=== PATIENT | male | born 1930 | race Caucasian/White ===

== ENCOUNTER 2018-07-16 13:57 | Inpatient (IN) ==
--- NOTE | 2018-07-16 14:53 | XRay Report ---
HISTORY: Fell with left hip pain FINDINGS: No fracture or dislocation are present. 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 Joint spaces in both hips are normal in width and symmetric and there is no significant arthritis in the hips. IMPRESSION: No fracture Interpreted and Authenticated by: Joseph Enrique 07/16/18
[2018-07-16] MEDS ORDERED: KETOROLAC 30 MG/ML VIAL IV ONE (15:34)
--- NOTE | 2018-07-16 16:35 | Emergency Department Note ---
Fall HPI - General Chief Complaint: Fall Stated Complaint: Fall. Left hip pain Time Seen by Provider: 07/16/18 14:17 Source: patient, EMS Mode of arrival: EMS Limitations: no limitations - History of Present Illness HPI Narrative: 88-year-old male who fell down a flight of 2 stairs hitting his head his left hip and his left knee about an hour prior to arrival. He is not on a blood thinner nor did he lose consciousness. His left hip actually hurts the worse and so he was given fentanyl en route by EMS - Related Data Home Medications Medication Instructions Recorded Confirmed Levothyroxine [Synthroid] 25 mcg PO DAILY 03/08/15 07/16/18 biotin 2,500 mcg capsule 5,000 mg PO TID cap 04/06/16 07/16/18 levetiracetam 500 mg tablet 500 mg PO Q12H 06/24/17 07/16/18 Bismuth Subsalicylate 262 mg PO TID 01/03/18 07/16/18 [Pepto-Bismol] Calcium Carbonate [Calcium] 500 mg PO DAILY 01/03/18 07/16/18 Colestipol HCl [Colestid] 1 gm PO BID 01/03/18 07/16/18 Telmisartan [Micardis] 40 mg PO QAM 01/03/18 07/16/18 Venlafaxine [Effexor Xr] 37.5 mg PO DAILY 01/03/18 07/16/18 L. Acidophilus/L. Rhamnosus 1 each PO DAILY 07/16/18 07/16/18 [Probiotic 15 Billion Cell Cap] sulfaSALAzine [Azulfidine] 1,000 mg PO BID 07/16/18 07/16/18 Previous Rx's Medication Instructions Recorded Pantoprazole [Protonix] 40 mg PO QAMAC #30 tab 07/17/18 Allergies Allergy/AdvReac Type Severity Reaction Status Date / Time No Known Drug Allergies Allergy Verified 07/16/18 14:09 Review of Systems All systems ED: reviewed and negative except as stated. Fall PMH - Past Medical History Attestation: Yes: The following information was validated with the patient. PMF Narrative: Family History (Last Reviewed 06/27/18 @ 08:16 by Linda Arnold CMA) Mother Ovarian cancer Brother CVA (cerebral vascular accident) Sister CVA (cerebral vascular accident) Medical History (Last Reviewed 06/27/18 @ 08:16 by Linda Arnold [facility]) Urinary frequency (Chronic) Balance problems (Chronic) Dry cough (Chronic) Bronchitis (Chronic) Lymphadenopathy (Chronic) Thrombocytopenia (Chronic) Lymphocytosis (Chronic) Lung nodule seen on imaging study (Chronic) Aspiration into airway (Chronic) MORGAN on CPAP (Chronic) Bronchiectasis (Chronic) Hypogammaglobulinemia (Chronic) Hyperuricemia (Chronic) 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) Septic shock (Chronic) Thyroid disease (Chronic) Lower extremity injury (Chronic) History of BPH (Chronic) Seizure disorder (Chronic) Swelling of right knee joint (Chronic) Right knee pain (Chronic) 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, right knee (Chronic) Severe sepsis with septic shock (Chronic) Weakness (Chronic) Acute kidney failure (Chronic) Gout, unspecified (Chronic) Constipation, unspecified (Chronic) Pain, unspecified (Chronic) Epilepsy, unspecified, not intractable, with status epilepticus (Chronic) Hypothyroidism (Chronic) Abdominal pain (Chronic) Pneumonia involving left lung (Chronic) Community acquired pneumonia (Chronic) Pneumonia (Chronic) Chronic lymphocytic leukemia (Chronic) Community acquired bacterial pneumonia (Chronic) Septic arthritis (Chronic) Septic arthritis of knee, right (Chronic) EUGENIO (acute kidney injury) (Chronic) High anion gap metabolic acidosis (Chronic) Hypernatremia (Chronic) H/O Clostridium difficile infection (Resolved) Past Surgical History (Last Reviewed 06/27/18 @ 08:16 by Linda Arnold [facility]) History of arthroplasty of right knee (Chronic) History of bone marrow biopsy (Chronic) History of surgery (Chronic 03/12/16) Medical history: Reports: arthritis, thyroid disease, other (Leukemia) Psychiatric history: Reports: no psych history Family history: Reports: no significant family history - Social History smoking status: Former smoker Alcohol use: Reports: None Drug use: Reports: none Physical Exam No acute distress. Normocephalic atraumatic. I palpated his entire school I do not see any hematoma abrasion laceration or other concerning traumatic feature. Conjunctive are clear sclerae nonicteric. Pupils are equal reactive. No nasal discharge or congestion. Oropharynx pink and moist. Posterior pharynx clear. Neck is supple without lymphadenopathy thyromegaly or carotid bruit. Heart is regular rate and rhythm no murmur appreciated. Lungs are clear to auscultation bilaterally without wheezes rales rhonchi or respiratory distress. Abdomen soft nontender nondistended. Left hip area tender at the true hip joint and the groin. No greater trochanter pain. Any movement of the hip at all causes significant discomfort. He does have normal sensation bilateral feet. Alert oriented able to answer questions appropriately. Reasonable historian Limitations: physical limitation Course Vital Signs Temperature 98.2 F 07/16/18 13:57 Pulse Rate 78 07/16/18 13:57 Respiratory Rate 20 07/16/18 13:57 Blood Pressure 132/76 07/16/18 13:57 Pulse Oximetry (%) 97 07/16/18 13:57 Temperature 97.2 F 07/17/18 07:42 Pulse Rate 82 07/17/18 04:30 Respiratory Rate 14 07/17/18 07:42 Blood Pressure 146/79 07/17/18 07:42 Pulse Oximetry (%) 91 07/17/18 07:42 Fall - Lab Data Lab results reviewed: Yes I reviewed the patient's lab results. Result diagrams: 07/17/18 04:20 07/17/18 04:20 Lab Results 07/16/18 07/16/18 07/16/18 Range/Units 17:04 17:04 17:23 WBC 4.7 (4.5-11.0) K/mcL RBC 3.09 L (4.50-5.90) M/mcL Hgb 9.5 L (13.5-16.5) g/dL Hct 28.6 L (41.0-55.0) % MCV 92.5 (80.0-100.0) fL MCH 30.8 (26.0-34.0) pg MCHC 33.3 (31.0-36.0) g/dL RDW 16.6 H (11.5-14.5) % Plt Count 48 L* (140-440) K/mcL MPV 8.7 (7.4-10.4) fL Gran % 70.8 (38.0-78.0) % Lymph % (Auto) 18.4 (15.5-49.0) % Cooper % (Auto) 8.5 (1.0-12.0) % Eos % (Auto) 2.0 (0.0-7.0) % Baso % (Auto) 0.3 (0.0-2.0) % Gran # 3.3 (1.8-8.0) K/mcL Lymph # (Auto) 0.9 L (1.5-4.8) K/mcL Cooper # (Auto) 0.4 (0.1-0.9) K/mcL Eos # (Auto) 0.1 (0.0-0.7) K/mcL Baso # (Auto) 0 (0.0-0.3) K/mcL Sodium 142 (133-145) mmol/L Potassium 4.5 (3.3-5.1) mmol/L Chloride 107 (96-108) mmol/L Carbon Dioxide 23 (22-30) mmol/L Anion Gap 12.0 (8-16) BUN 32 H (8-23) mg/dl Creatinine 1.4 H (0.7-1.2) mg/dl GFR Calculation 45 Glucose 107 H (70-105) mg/dL Calcium 8.3 L (8.6-10.4) mg/dl Total Bilirubin 0.3 (0.0-1.0) mg/dL AST 25 (0-37) U/l ALT 12 (0-40) U/l Alkaline Phosphatase 71 (39-117) U/L Total Protein 6.0 (5.9-8.4) gm/dL Albumin 3.6 (3.2-5.2) gm/dL Globulin 2.4 (2.2-3.7) gm/dL Albumin/Globulin Ratio 1.5 (1.0-2.3) Urine Color Yellow Urine Appearance Clear Urine pH 5.0 (5.0-9.0) Ur Specific [place] 1.014 (1.000-1.035) Urine Protein Neg (NEG) mg/dL Urine Glucose (UA) Negative (NEG) mg/dL Urine Ketones Neg (NEG) mg/dL Urine Occult Blood Neg (<0.03) mg/dL Urine Nitrate Neg (NEG) Urine Bilirubin Neg (NEG) mg/dL Urine Urobilinogen Neg (NEG) mg/dL Ur Leukocyte Esterase Neg (NEG) /uL Urine RBC 0 (0-1) /hpf Urine WBC 0 (0-4) /hpf Ur Squamous Epith Cells 0 (0-4) /hpf Urine Bacteria 0 (0) /hpf Urine Mucus Few (0) /hpf Ur Culture Indicated? No - Radiology Data Radiology results reviewed: Yes I reviewed the patient's radiology results. Initial x-ray of the left hip shows no acute fracture but CT scan shows acetabular fracture, left ischium comminuted fracture - EKG Data EKG attestation: Yes I reviewed and interpreted this EKG. EKG results narrative: EKG shows rate of 68 left axis deviation low voltage leads otherwise sinus rhythm Disposition Pt seen by TALENT RECRUITER/PA only: No Clinical Impression: Closed left acetabular fracture Qualifiers: Encounter type: initial encounter Sublocation of acetabulum: posterior wall Fracture alignment: nondisplaced Qualified Code(s): S32.425A - Nondisplaced fracture of posterior wall of left acetabulum, initial encounter for closed fracture Summary: Patient initially treated with Toradol because he already gotten fentanyl in the EMS and did not want further narcotics. Left hip acetabular fracture identified. At this time he is not able to go home as he is not able to move that hip at all without severe pain and his cannot care for him I discussed case with Dr. Michael Maurer orthopedist concert manager who agreed to admit the patient for pain management and fracture care. Dr. Islas, the hospitalist was also consulted for medical management of his chronic medical diseases including seizure disorder and thyroid. I wrote some transition orders Disposition: Xfer As Inpt ([facility]) Condition: Fair
[2018-07-16 17:55] LABS: Appearance,Urine CLEAR; Bacteria,Urine 0 /hpf (0); Bilirubin,Urine NEG (NEG); Color,Urine YELLOW; Glucose,Urine (UA) NEGATIVE (NEG); Leukocyte Esterase,Urine NEG /uL (NEG); Mucus,Urine FEW /hpf (0); Protein,Urine NEG (NEG); Specific Gravity,Urine 1.014 (1.000-1.035); Urine Blood NEG mg/dL (<0.03); Urine RBC 0 /hpf (0-1); Urine Squamous Epithelial Cell 0 /hpf (0-4); Urine WBC 0 /hpf (0-4); Urobilinogen,Urine NEG (NEG)
[2018-07-16] MEDS ORDERED: ACETAMINOPHEN 325 MG TABLET PO PRN (17:56)
[2018-07-16] MEDS ORDERED: ONDANSETRON 4 MG/2 ML VIAL IV PRN (17:56)
[2018-07-16] MEDS ORDERED: NALOXONE HCL 0.4 MG/ML VIAL IV PRN (17:56)
[2018-07-16 18:10] LABS: Basophils # (Auto) 0 K/mcL (0.0-0.3); Basophils % (Auto) 0.3 % (0.0-2.0); Eosinophils # (Auto) 0.1 K/mcL (0.0-0.7); Granulocytes % (Auto) 70.8 % (38.0-78.0); Lymphocytes # (Auto) 0.9 K/mcL (1.5-4.8); Lymphocytes % (Auto) 18.4 % (15.5-49.0); Mean Cell Volume 92.5 fL (80.0-100.0); Mean Corpuscular HGB Conc 33.3 g/dL (31.0-36.0); Monocytes # (Auto) 0.4 K/mcL (0.1-0.9); Monocytes % (Auto) 8.5 % (1.0-12.0); Platelet Count 48 K/mcL (140-440); RBC 3.09 M/mcL (4.50-5.90); Red Cell Distribution Width 16.6 % (11.5-14.5)
[2018-07-16 18:13] LABS: ALT/SGPT 12 U/l (0-40); Albumin 3.6 gm/dL (3.2-5.2); Albumin/Globulin Ratio 1.5 (1.0-2.3); Alkaline Phosphatase 71 U/L (39-117); Blood Urea Nitrogen 32 mg/dl (8-23)
--- NOTE | 2018-07-16 18:18 | Internal Medicine Consult Note ---
Medical - CN: HPI - Data of Consult Family Provider: Jace Nance - Consult Narrative History of present illness: Mr. Jennings is a 88 year old M resents to the ED after falling on left hip with immediate severe pain. Patient reports he was walking down steps into his basement when he reached near the bottom of the steps grabbed a handrail to start turning to the side when he slipped, because of his slippers per the patient, when he fell onto his left hip had immediate pain did not try to get up because of the severity of the pain. Patient was brought to the ED where imaging was performed and was found to have a left acetabular fracture. Dr. Damon collier thick surgery was contacted as well as myself. Patient denies any recent illnesses, there is no loss of consciousness. Review of Systems: Pertinent positives as above, has a chronic cough. Denies headache/fev er/chills/nausea/vomiting/chest or abdominal pain/dyspnea/diarrhea. Remaining 10 point review of system review negative CC: Medical - CN: [facility] Medical history: Medical History (Last Reviewed 06/27/18 @ 08:16 by Linda Arnold [facility]) Urinary frequency (Chronic) Balance problems (Chronic) Dry cough (Chronic) Bronchitis (Chronic) Lymphadenopathy (Chronic) Thrombocytopenia (Chronic) Lymphocytosis (Chronic) Lung nodule seen on imaging study (Chronic) Aspiration into airway (Chronic) MORGAN on CPAP (Chronic) Bronchiectasis (Chronic) Hypogammaglobulinemia (Chronic) Hyperuricemia (Chronic) 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) Septic shock (Chronic) Thyroid disease (Chronic) Lower extremity injury (Chronic) History of BPH (Chronic) Seizure disorder (Chronic) Swelling of right knee joint (Chronic) Right knee pain (Chronic) 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, right knee (Chronic) Severe sepsis with septic shock (Chronic) Weakness (Chronic) Acute kidney failure (Chronic) Gout, unspecified (Chronic) Constipation, unspecified (Chronic) Pain, unspecified (Chronic) Epilepsy, unspecified, not intractable, with status epilepticus (Chronic) Hypothyroidism (Chronic) Abdominal pain (Chronic) Pneumonia involving left lung (Chronic) Community acquired pneumonia (Chronic) Pneumonia (Chronic) Chronic lymphocytic leukemia (Chronic) Community acquired bacterial pneumonia (Chronic) Septic arthritis (Chronic) Septic arthritis of knee, right (Chronic) EUGENIO (acute kidney injury) (Chronic) High anion gap metabolic acidosis (Chronic) Hypernatremia (Chronic) H/O Clostridium difficile infection (Resolved) Past Surgical History (Last Reviewed 06/27/18 @ 08:16 by Linda Arnold CMA) History of arthroplasty of right knee (Chronic) History of bone marrow biopsy (Chronic) History of surgery (Chronic 03/12/16) Family History (Last Reviewed 06/27/18 @ 08:16 by Linda Arnold CMA) Mother Ovarian cancer Brother CVA (cerebral vascular accident) Sister CVA (cerebral vascular accident) Social History (Last Updated 07/13/18 @ 11:39 by Mali Acuña MD) Quit smoking 54 years ago, drinks alcohol rarely, lives with a friend Medical - CN: Meds Home Medications Medication Instructions Recorded Confirmed Type Levothyroxine [Synthroid] 25 mcg PO DAILY 03/08/15 06/27/18 History biotin 2,500 mcg capsule 5,000 mg PO TID cap 04/06/16 06/27/18 History levetiracetam 500 mg tablet 1,000 mg PO Q12H 06/24/17 06/27/18 History Bismuth Subsalicylate 262 mg PO BID 01/03/18 06/27/18 History [Pepto-Bismol] Calcium Carbonate [Calcium] 500 mg PO DAILY 01/03/18 06/27/18 History Colestipol HCl [Colestid] 1 gm PO BID 01/03/18 06/27/18 History Telmisartan [Micardis] 40 mg PO QAM 01/03/18 06/27/18 History Venlafaxine [Effexor Xr] 37.5 mg PO DAILY 01/03/18 06/27/18 History 1 inhaler unknown name INHALATION 06/27/18 06/27/18 History Allergies Allergy/AdvReac Type Severity Reaction Status Date / Time No Known Drug Allergies Allergy Verified 07/16/18 14:09 Medical - CN: Exam - Constitutional Vitals: Temp Pulse Resp BP Pulse Ox 98.2 F 81 20 131/66 91 07/16/18 13:57 07/16/18 18:01 07/16/18 13:57 07/16/18 18:01 07/16/18 18:01 Exam: General: Alert, Awake, No acute Distress Eyes/N/T: EOMI, PEERL, Head/Neck: neck supple, normocephalic atraumatic CV: RRR, No murmurs, normal s1/s2 Pulm: Clear b/l, no wheezing/rhonchi/rales Abd: soft, nontender, +BS x4 Ext: no clubbing/cyanosis/edema Neuro: Alert, no focal deficits, CN 2-12 grossly intact, sensations intact b/l upper/lower Skin: warm/dry Medical - CN: Result - Labs CBC & Chem 7: 07/16/18 17:04 07/16/18 17:04 Labs: Short CBC 07/16/18 Range/Units 17:04 WBC 4.7 (4.5-11.0) K/mcL Hgb 9.5 L (13.5-16.5) g/dL Hct 28.6 L (41.0-55.0) % Plt Count 48 L* (140-440) K/mcL BMP 07/16/18 17:04 Sodium 142 Potassium 4.5 Chloride 107 Carbon Dioxide 23 BUN 32 H Creatinine 1.4 H Glucose 107 H Calcium 8.3 L Liver Function 07/16/18 Range/Units 17:04 Total Bilirubin 0.3 (0.0-1.0) mg/dL AST 25 (0-37) U/l ALT 12 (0-40) U/l Alkaline Phosphatase 71 (39-117) U/L Albumin 3.6 (3.2-5.2) gm/dL Urine 07/16/18 Range/Units 17:23 Urine Color Yellow Urine Appearance Clear Urine pH 5.0 (5.0-9.0) Ur Specific [place] 1.014 (1.000-1.035) Urine Protein Neg (NEG) mg/dL Urine Glucose (UA) Negative (NEG) mg/dL - Impressions CT pelvis with left acetabular fracture Medical - CN: A/P - Narrative A/P Narrative: A: *Left acetabular fracture: *CLL, chronic anemia: Follows with Dr. Suarez *Hypothyroidism: *Depression: *h/o seizure d/o: has not had a seizure since he was a child * P: -hip per Ortho -pain control - -pt/ot -CM for placement -ppx: SCD's/heparin if no surgery
[2018-07-16] MEDS ORDERED: HYDROcodone/APAP 5/325MG TABLET PO PRN (18:24)
[2018-07-16] MEDS ORDERED: 0.9 % SODIUM CHLORIDE 1,000 ML IV SCH (18:30)
--- NOTE | 2018-07-16 19:14 | Cat Scan Report ---
History: Fell and left hip injury TECHNIQUE: The pelvis was imaged without contrast at 2.5 mm intervals. Sagittal and coronal reformats were created. Radiation exposure was limited using dose reduction technology. FINDINGS: There is an acute comminuted fracture of the left ischium involving the medial wall and roof of the acetabulum. There is also a transverse component fracture involving the inferior aspect of left iliac bone, just above the hip. Nondisplaced fractures present in the left inferior pubic ramus. Associated with this is hematoma in the left obturator internus muscle. The femoral head and neck are normal without evidence of fracture. There is ankylosis across the SI joints. The sacrum and right side of the pelvis are normal. The fracture was occult on the preceding x-ray done earlier the same date. IMPRESSION: Comminuted fracture in the left ischium The ER was called with the results Interpreted and Authenticated by: Joseph Enrique 07/16/18
--- NOTE | 2018-07-16 19:15 | XRay Report ---
HISTORY: Preop for hip fracture repair FINDINGS: Small band of discoid atelectasis is present at the left costophrenic sulcus. The lungs are otherwise clear. The heart size and pulmonary vasculature are normal. There is no pleural effusion. The aorta is mildly tortuous. A mild dextroscoliotic curvature is present in the midthoracic spine. IMPRESSION: mild discoid atelectasis at the left costophrenic sulcus. The chest is otherwise normal. Interpreted and Authenticated by: Joseph Enrique 07/16/18
[2018-07-16] MEDS ORDERED: oxyCODONE/APAP 5/325MG TABLET PO PRN (20:51)
[2018-07-16] MEDS ORDERED: BISMUTH SUBSALICYLATE 262 MG PO SCH (21:00)
[2018-07-16] MEDS ORDERED: Tiotropium Br/Olodaterol Hcl [Stiolto Respimat Inhaler] INH SCH (21:00)
[2018-07-16] MEDS ORDERED: ceFAZolin 1 GM VIAL IV SCH (21:00)
[2018-07-16] MEDS: sulfaSALAzine 500 MG TABLET PO SCH (22:05)
[2018-07-16] MEDS: levETIRAcetam 500 MG TABLET PO SCH (22:05)
[2018-07-16] MEDS: COLESTIPOLL 1 GM TABLET PO SCH (22:05)
[2018-07-17 05:57] LABS: ALT/SGPT 11 U/l (0-40); Albumin 3.7 gm/dL (3.2-5.2); Albumin/Globulin Ratio 1.5 (1.0-2.3); Alkaline Phosphatase 62 U/L (39-117); Bilirubin,Direct < 0.2 mg/dL (0.0-0.3); Blood Urea Nitrogen 32 mg/dl (8-23); Gamma Glutamyl Transpeptidase 17 U/L (8-61); Uric Acid 6.8 mg/dL (2.5-8.0)
--- NOTE | 2018-07-17 06:45 | Internal Med Progress Note ---
Medical - PN: Subj Patient information: Note initiated : 07/17/18 at 6:43 am Service Date, if different from initiated Date: [] Patient: Mu Jennings a 88 y/o M admitted on 07/16/18 for Fall. Left Hip Pain. Chief Complaint: [] Interval history: Mr. Jennings is a 88 year old M resents to the ED after falling on left hip with immediate severe pain. Patient reports he was walking down steps into his basement when he reached near the bottom of the steps grabbed a handrail to start turning to the side when he slipped, because of his slippers per the patient, when he fell onto his left hip had immediate pain did not try to get up because of the severity of the pain. Patient was brought to the ED where imaging was performed and was found to have a left acetabular fracture. Dr. Damon diallo surgery was contacted as well as myself. Patient denies any recent illnesses, there is no loss of consciousness. 07/17 Slept well, no new complaints. Pain controlled. Awaiting decision on surgery and possibly needing to go to [place]. Review of Systems: chronic cough, denies headache/fever/chills/nausea/vomiting/chest or abdominal pain/dyspnea/diarrhea. Otherwise see above. - Constitutional Vitals: Vital Signs Temp Pulse Resp BP Pulse Ox 97.4 F 82 20 142/78 92 07/17/18 04:30 07/17/18 04:30 07/17/18 04:30 07/17/18 04:30 07/17/18 04:30 Period Temp Pulse Resp BP Sys/Zeng Pulse Ox Last 24 Hr 97.4 F-98.2 F 67-82 14-20 122-143/65-82 87-98 Intake and Output 07/16/18 07/17/18 07/17/18 21:59 05:59 13:59 Intake Total 50 Output Total 1250 Balance -1200 Weight 87.997 kg Intake & Output: Intake & Output 07/16/18 07/17/18 07/17/18 21:59 05:59 13:59 Intake Total 50 Output Total 1250 Balance -1200 Weight 87.997 kg Intake: Oral 50 Output: Urine Catheter Amount 1250 Other: Urine Appearance Clear Uretheral (Maria) Clear Urine Color Bright Yellow Uretheral (Maria) Bright Yellow Urine Odor Uretheral (Maria) Normal Exam: General: Alert, Awake, No acute Distress Eyes/N/T: EOMI, Head/Neck: neck supple, CV: RRR, No murmurs, Pulm: Clear b/l, no wheezing/rhonchi/rales Abd: soft, nontender, +BS x4 Ext: no clubbing/cyanosis/edema Neuro: Alert, no focal deficits, Skin: warm/dry Medical - PN: Obj Da - Labs CBC & Chem 7: 07/17/18 04:20 07/17/18 04:20 Labs: Abnormal Lab Results 07/17/18 07/16/18 07/16/18 04:20 17:04 17:04 RBC 3.09 L Hgb 9.5 L Hct 28.6 L RDW 16.6 H Plt Count 48 L* Lymph # (Auto) 0.9 L BUN 32 H 32 H Creatinine 1.3 H 1.4 H Glucose 110 H 107 H Calcium 8.4 L 8.3 L Triglycerides 190 H Meds: Medications Acetaminophen (Tylenol) 650 mg PO Q6HP PRN PRN Reason: PAIN/FEVER > 101 Last Admin: 07/17/18 04:49 Dose: 650 mg Documented by: Hydrocodone Bitart/Acetaminophen ([place] 5/325mg) 1 tab PO Q4-6HP PRN PRN Reason: PAIN LEVEL 3-6 Bismuth Subsalicylate (Pepto Bismol) 15 ml PO TIDCC [facility] Calcium Carbonate/Glycine (Oscal) 500 mg PO DAILY [facility] Colestipol HCl (Colestid) 1 gm PO BID [facility] Last Admin: 07/16/18 22:05 Dose: Not Given Documented by: Lactobacillus Rhamnosus (Culturelle) 1 cap PO DAILY [facility] Levetiracetam (Keppra) 500 mg PO Q12H [facility] Last Admin: 07/16/18 22:05 Dose: Not Given Documented by: Levothyroxine Sodium (Synthroid) 25 mcg PO ACB [facility] Losartan Potassium (Cozaar) 100 mg PO DAILY [facility] Morphine Sulfate (Morphine) 2 mg IV Q2HP PRN PRN Reason: PAIN LEVEL > 6 Naloxone HCl (Narcan) 0.1 mg IV Q2MIN PRN PRN Reason: Opiate Reversal Ondansetron HCl (Zofran) 4 mg IV Q4HP PRN PRN Reason: Nausea And Vomiting Oxycodone/Acetaminophen (Percocet 5-325 Mg) 1 tab PO Q4HP PRN PRN Reason: Pain Pantoprazole Sodium (Protonix) 40 mg IV QAMAC [facility] Sulfasalazine (Sulfasalazine) 1,000 mg PO BID [facility] Last Admin: 07/16/18 22:05 Dose: Not Given Documented by: Venlafaxine HCl (Effexor Xr) 37.5 mg PO DAILY [facility] Medical - PN: A/P - Time Spent With Patient Total time spent is greater than 50% in coordination of care (as documented) at patient's floor/unit and/or counseling patient: - Narrative A/P Narrative: A: *Left acetabular fracture: *CLL, chronic anemia, chronic thrombocytopenia: Follows with Dr. Suarez -Hgb 9.2 -Plt 47 *Hypothyroidism: *Depression: *h/o seizure d/o: has not had a seizure since he was a child *?EUGENIO on CKD III vs baseline: P: -hip per Ortho, may need to go to [place] -pain control -monitor cbc -pt/ot -CM for placement -ppx: SCD's/chemical ppx held as PLT's <50k
[2018-07-17 07:07] LABS: Basophils # (Auto) 0 K/mcL (0.0-0.3); Basophils % (Auto) 0.4 % (0.0-2.0); Eosinophils # (Auto) 0.1 K/mcL (0.0-0.7); Eosinophils % (Auto) 1.7 % (0.0-7.0); Granulocytes % (Auto) 63.9 % (38.0-78.0); Lymphocytes # (Auto) 1.1 K/mcL (1.5-4.8); Lymphocytes % (Auto) 24.4 % (15.5-49.0); Mean Cell Volume 92.7 fL (80.0-100.0); Mean Corpuscular HGB Conc 32.8 g/dL (31.0-36.0); Monocytes # (Auto) 0.4 K/mcL (0.1-0.9); Monocytes % (Auto) 9.6 % (1.0-12.0); Platelet Count 47 K/mcL (140-440); RBC 3.03 M/mcL (4.50-5.90); Red Cell Distribution Width 16.9 % (11.5-14.5)
--- NOTE | 2018-07-17 07:42 | History and Physical Report ---
DATE OF ADMISSION: 07/16/2018 HISTORY OF PRESENT ILLNESS: This is a consultation and admission History and Physical. The patient sustained a fall onto the left hip, had immediate pain, swelling, and deformity and was subsequently diagnosed with an Acetabular fracture involving the ischium but initially not seen on x-rays. For this reason, I have been consulted to see the patient. The patient was admitted to the floor so I could visit with the patient and see how he was doing. The patient otherwise has been in quite a bit of pain. His left leg is flexed to keep it from moving because of the amount of pain. It does appear that there is substantial involvement of the acetabulum and it does appear that it is an unstable fracture pattern involving the ischium and anterior column. With this type of a fracture, this is something that usually needs to have a plate. I do not plate anterior column fractures; if it is just a posterior column that is something that I could plate. He is otherwise very unhealthy, this 88-year-old male, and he feels like he would like to have a plate so he can at least move a little bit. PAST MEDICAL HISTORY: Substantial including abdominal pain, acute kidney failure still with kidney problems with a BUN of what appears to be 37 and a creatinine of 1.7. He has a history of bronchitis, high blood pressure, dry cough, epilepsy, gout. He has had C. difficile, BPH, hyponatremia. He has also had methicillin susceptible Staph aureus infections in the past. He has had lymphocytosis as well lymphadenopathy, right knee pain, seizures as noted, septic arthritis of the right knee, severe septic shock in the past, and urinary frequency due to the BENIGN PROSTATIC HYPERTROphy. PAST SURGICAL HISTORY: A total knee arthroplasty, bone marrow biopsy. MEDICATIONS: Quite extensive. 1. Hydrocodone 5 mg p.r.n. pain. 2. Morphine sulfate. 3. Sulfa trimethoprim. 4. Zofran. 5. Protonix. 6. Keppra. 7. Synthroid. 8. Tylenol. 9. Fluticasone as a steroid inhaler. 10. Effexor. 11. Calcium. 12. Multivitamins, which include biotin. 13. Synthroid 25 mcg p.o. every day. 14. Sulfasalazine 1000 mg p.o. b.i.d. 15. Micardis 40 mg p.o. q.a.m. DRUG ALLERGIES: No known drug allergies. REVIEW OF SYSTEMS: No active chest pain or shortness of breath. He is in quite a bit of pain around the hip. He does note that the hypertension and kidney problems. PHYSICAL EXAMINATION: A very pleasant 88-year-old who is alert, cooperative, gives a good history. He is unable to move the left leg with hip flexion in some distress. VITAL SIGNS: Height 5'6'', weight 194 pounds with a BMI of 31.3. LUNGS: Clear to auscultation. CARDIOVASCULAR: Regular. ABDOMEN: Soft, nontender; though any time I push around the left lower quadrant it is very painful and seems to be sore. EXTREMITIES: He can move his foot up and down with good capillary refill noted. Pulses are poor in both lower extremities. I do not see any open wounds, lacerations or abrasions. RADIOLOGIST STUDIES: Review of his x-rays do show an ischial fracture and what appears to even correlate with the medial wall, but there is no penetration of the femoral head. As I reviewed the CT scan, which I will try to do again tomorrow, we were able to see what appeared to be the fracture of the ischium as well as into the anterior column, making this an unstable fracture pattern. PLAN: If this is something I am unable to do, I have spoken with the patient and he is willing to be transferred and would have this reviewed by a surgeon in [place] to see if that is something that they could help this patient with. He does worry about staying in bed as there is significant complications with doing so and he does not think he would survive and neither do I. For that reason, I think it is best fixed with surgery. I will talk to the patient again and see how he feels towards surgery and come to a conclusion. JOSE:ester Job ID: [id number] Doc ID: [id number] Сергей Maurer MD
[2018-07-17] MEDS: levETIRAcetam 500 MG TABLET PO SCH ×2 (08:06→21:26)
[2018-07-17] MEDS: VENLAFAXINE 37.5 MG TAB.ER.24H PO SCH (08:06)
[2018-07-17] MEDS: LEVOTHYROXINE 25 MCG TABLET PO SCH (08:06)
[2018-07-17] MEDS: LOSARTAN 50 MG TABLET PO SCH (08:06)
[2018-07-17] MEDS: PANTOPRAZOLE 40 MG VIAL IV SCH ×2 (08:07)
[2018-07-17] MEDS: CALCIUM (OYSTER SHELL) 500 MG TABLET PO SCH (08:21)
[2018-07-17] MEDS: LACTOBACILLUS 1 CAPSULE PO SCH (08:21)
[2018-07-17] MEDS: sulfaSALAzine 500 MG TABLET PO SCH ×2 (08:21→21:25)
[2018-07-17] MEDS: BISMUTH SUBSALICYLATE 15 ML ORAL.SUSP PO SCH ×3 (08:22→21:26)
[2018-07-17] MEDS ORDERED: Fluticasone Furoate [Arnuity Ellipta] Inhaler INH SCH (09:00)
[2018-07-17] MEDS ORDERED: TELMISARTAN 40 MG PO SCH (09:00)
[2018-07-17] MEDS: COLESTIPOLL 1 GM TABLET PO SCH ×3 (11:02→21:26)
[2018-07-17] MEDS ORDERED: BENZOCAINE/MENTHOL 1 LOZENGE PO PRN (12:02)
--- NOTE | 2018-07-17 12:33 | XRay Report ---
CLINICAL INFORMATION: left acetabular fx COMPARISON: 07/16/[address] FINDINGS: The mildly comminuted minimally displaced fracture through the medial wall of the left acetabulum is unchanged. Both hip joints and SI joints are unremarkable. IMPRESSION: Minimally displaced, comminuted fracture through the medial wall of the left acetabulum. This is known to extend through the acetabular roof on CT. No change Interpreted and Authenticated by: Reuben Tang 07/17/18
--- NOTE | 2018-07-17 15:54 | XRay Report ---
CLINICAL INFORMATION: Left pelvic fracture COMPARISON: CT 07/16/2018 FINDINGS: Mildly comminuted and minimally displaced fractures of the posterior column involving the medial wall and acetabular roof is appreciated. There is also a nondisplaced fracture inferior left pubic ramus. No change. Both SI joints are normal with mild arthritic change. IMPRESSION: Mildly comminuted and minimally displaced posterior column fracture which involves the medial wall and left acetabular roof . No change Interpreted and Authenticated by: Reuben Tang 07/17/18
[2018-07-17] MEDS: TRANEXAMIC ACID 1,000 MG/10 ML VIAL IV SCH (21:25)
[2018-07-18] MEDS: LEVOTHYROXINE 25 MCG TABLET PO SCH ×2 (05:10→05:50)
[2018-07-18] MEDS: BISMUTH SUBSALICYLATE 15 ML ORAL.SUSP PO SCH ×3 (07:35→18:55)
[2018-07-18] MEDS: PANTOPRAZOLE 40 MG VIAL IV SCH (07:35)
[2018-07-18] MEDS: LOSARTAN 50 MG TABLET PO SCH (08:03)
[2018-07-18] MEDS: VENLAFAXINE 37.5 MG TAB.ER.24H PO SCH (08:03)
[2018-07-18] MEDS: COLESTIPOLL 1 GM TABLET PO SCH ×3 (08:03→22:11)
[2018-07-18] MEDS: LACTOBACILLUS 1 CAPSULE PO SCH (08:03)
[2018-07-18] MEDS: sulfaSALAzine 500 MG TABLET PO SCH (08:04)
[2018-07-18] MEDS: CALCIUM (OYSTER SHELL) 500 MG TABLET PO SCH (08:04)
[2018-07-18] MEDS: TRANEXAMIC ACID 1,000 MG/10 ML VIAL IV SCH (08:05)
[2018-07-18] MEDS: levETIRAcetam 500 MG TABLET PO SCH ×3 (08:08→22:11)
--- NOTE | 2018-07-18 11:14 | Internal Med Progress Note ---
Medical - PN: Subj Patient information: Note initiated : 07/18/18 at 11:12 am Service Date, if different from initiated Date: [] Patient: Mu Jennings a 88 y/o M admitted on 07/16/18 for Fall. Left Hip Pain. Chief Complaint: [] Interval history: Mr. Jennings is a 88 year old M resents to the ED after falling on left hip with immediate severe pain. Patient reports he was walking down steps into his basement when he reached near the bottom of the steps grabbed a handrail to start turning to the side when he slipped, because of his slippers per the patient, when he fell onto his left hip had immediate pain did not try to get up because of the severity of the pain. Patient was brought to the ED where imaging was performed and was found to have a left acetabular fracture. Dr. Damon diallo surgery was contacted as well as myself. Patient denies any recent illnesses, there is no loss of consciousness. 07/17 Slept well, no new complaints. Pain controlled. Awaiting decision on surgery and possibly needing to go to [place]. 07/18-patient seen in room along with . Not a candidate for surgery or august sfer to tertiary center. Will undergo rehab/treatment as per orthopedics. Continue pain management. Patient appears anxious about prognosis and extent of healing. Advised to discuss with orthopedics - Constitutional Vitals: Vital Signs Temp Pulse Resp BP Pulse Ox 97.5 F 79 14 129/73 95 07/18/18 07:00 07/18/18 07:15 07/18/18 07:15 07/18/18 07:00 07/18/18 07:15 Period Temp Pulse Resp BP Sys/Zeng Pulse Ox Last 24 Hr 96.7 F-98.5 F 79-86 12-24 129-144/72-78 91-97 Intake and Output 07/17/18 07/18/18 07/18/18 21:59 05:59 13:59 Intake Total 240 200 266 Output Total 600 925 400 Balance -360 -725 -134 Weight 193 lb Intake & Output: Intake & Output 07/17/18 07/18/18 07/18/18 21:59 05:59 13:59 Intake Total 240 200 266 Output Total 600 925 400 Balance -360 -725 -134 Weight 193 lb Intake: Oral 240 200 266 Output: Urine Catheter Amount 600 925 400 Other: Meal Dinner Breakfast Percent of Meal Consumed 100% 100% Feeding Ability Independent Independent Urine Appearance Clear Clear Uretheral (Maria) Clear Urine Color Straw Dark Yellow Uretheral (Maria) Dark Yellow Urine Odor Normal Normal General appearance: no acute distress Exam: Anxious Nonlabored breathing Nondistended abdomen Maria is draining clear urine Medical - PN: Obj Da - Labs CBC & Chem 7: 07/17/18 04:20 07/17/18 04:20 Labs: Abnormal Lab Results 07/17/18 07/17/18 07/16/18 04:20 04:20 17:04 WBC 4.4 L RBC 3.03 L Hgb 9.2 L Hct 28.1 L RDW 16.9 H Plt Count 47 L* Lymph # (Auto) 1.1 L BUN 32 H 32 H Creatinine 1.3 H 1.4 H Glucose 110 H 107 H Calcium 8.4 L 8.3 L Triglycerides 190 H 07/16/18 17:04 WBC RBC 3.09 L Hgb 9.5 L Hct 28.6 L RDW 16.6 H Plt Count 48 L* Lymph # (Auto) 0.9 L BUN Creatinine Glucose Calcium Triglycerides Meds: Medications Acetaminophen (Tylenol) 650 mg PO Q6HP PRN PRN Reason: PAIN/FEVER > 101 Last Admin: 07/17/18 04:49 Dose: 650 mg Documented by: Hydrocodone Bitart/Acetaminophen ([place] 5/325mg) 1 tab PO Q4-6HP PRN PRN Reason: PAIN LEVEL 3-6 Bismuth Subsalicylate (Pepto Bismol) 15 ml PO TIDCC [facility] Last Admin: 07/18/18 07:35 Dose: 15 ml Documented by: Calcium Carbonate/Glycine (Oscal) 500 mg PO DAILY [facility] Last Admin: 07/18/18 08:04 Dose: 500 mg Documented by: Colestipol HCl (Colestid) 1 gm PO BID [facility] Last Admin: 07/18/18 08:03 Dose: 1 gm Documented by: Lactobacillus Rhamnosus (Culturelle) 1 cap PO DAILY [facility] Last Admin: 07/18/18 08:03 Dose: 1 cap Documented by: Levetiracetam (Keppra) 500 mg PO Q12H [facility] Last Admin: 07/18/18 08:08 Dose: 500 mg Documented by: Levothyroxine Sodium (Synthroid) 25 mcg PO ACB [facility] Last Admin: 07/18/18 05:50 Dose: Not Given Documented by: Losartan Potassium (Cozaar) 100 mg PO DAILY [facility] Last Admin: 07/18/18 08:03 Dose: 100 mg Documented by: Morphine Sulfate (Morphine) 2 mg IV Q2HP PRN PRN Reason: PAIN LEVEL > 6 Last Admin: 07/18/18 02:24 Dose: 2 mg Documented by: Naloxone HCl (Narcan) 0.1 mg IV Q2MIN PRN PRN Reason: Opiate Reversal Ondansetron HCl (Zofran) 4 mg IV Q4HP PRN PRN Reason: Nausea And Vomiting Oxycodone/Acetaminophen (Percocet 5-325 Mg) 1 tab PO Q4HP PRN PRN Reason: Pain Pantoprazole Sodium (Protonix) 40 mg IV QAMAC [facility] Last Admin: 07/18/18 07:35 Dose: 40 mg Documented by: Sulfasalazine (Sulfasalazine) 1,000 mg PO BID [facility] Last Admin: 07/18/18 08:04 Dose: 1,000 mg Documented by: Throat Lozenges (Cepacol) 1 lozenge PO PRN PRN PRN Reason: Sore Throat Tranexamic Acid (Tranexamic Acid) 1,000 mg IV BID [facility] Stop: 07/19/18 09:01 Last Admin: 07/18/18 08:05 Dose: 1,000 mg Documented by: Venlafaxine HCl (Effexor Xr) 37.5 mg PO DAILY [facility] Last Admin: 07/18/18 08:03 Dose: 37.5 mg Documented by: Medical - PN: A/P - Time Spent With Patient Total time spent is greater than 50% in coordination of care (as documented) at patient's floor/unit and/or counseling patient: 25 - 35 minutes (1) Closed left acetabular fracture Status: Acute Assessment and plan: * Left acetabular fracture-nonoperable. Continue rehab/treatment as per orthopedics. * CLL, chronic anemia, chronic thrombocytopenia: Follows with Dr. Suarez, hemoglobin stable around 9/platelets 47 * Hypothyroidism-continue levothyroxine * GERD continue PPI * History of depression continue Effexor * Hypertension continue telmisartan. Systolics at goal * Stage III CKD-creatinine 1.3 Plan * Hip fracture management per orthopedics * Pain management as indicated * Continued rehab support * Case management to arranged discharge planning * Prior medical condition management as above * DVT prophylaxis Current Visit: Yes
[2018-07-19] MEDS: sulfaSALAzine 500 MG TABLET PO SCH ×2 (00:05→09:37)
[2018-07-19] MEDS: TRANEXAMIC ACID 1,000 MG/10 ML VIAL IV SCH ×2 (00:06→10:38)
[2018-07-19] MEDS: LEVOTHYROXINE 25 MCG TABLET PO SCH (06:06)
[2018-07-19] MEDS: PANTOPRAZOLE 40 MG VIAL IV SCH (06:06)
[2018-07-19] MEDS: BISMUTH SUBSALICYLATE 15 ML ORAL.SUSP PO SCH (07:32)
[2018-07-19] MEDS: COLESTIPOLL 1 GM TABLET PO SCH (07:32)
[2018-07-19] MEDS: LACTOBACILLUS 1 CAPSULE PO SCH (09:37)
[2018-07-19] MEDS: LOSARTAN 50 MG TABLET PO SCH (09:37)
[2018-07-19] MEDS: VENLAFAXINE 37.5 MG TAB.ER.24H PO SCH (09:37)
[2018-07-19] MEDS: CALCIUM (OYSTER SHELL) 500 MG TABLET PO SCH (09:37)
[2018-07-19 09:57] LABS: Basophils # (Auto) 0 K/mcL (0.0-0.3); Basophils % (Auto) 0.3 % (0.0-2.0); Eosinophils # (Auto) 0.1 K/mcL (0.0-0.7); Eosinophils % (Auto) 1.9 % (0.0-7.0); Granulocytes % (Auto) 64.7 % (38.0-78.0); Lymphocytes # (Auto) 1.5 K/mcL (1.5-4.8); Lymphocytes % (Auto) 22.5 % (15.5-49.0); Mean Cell Volume 92.3 fL (80.0-100.0); Mean Corpuscular HGB Conc 33.3 g/dL (31.0-36.0); Monocytes # (Auto) 0.7 K/mcL (0.1-0.9); Monocytes % (Auto) 10.6 % (1.0-12.0); Platelet Count 73 K/mcL (140-440); RBC 3.38 M/mcL (4.50-5.90); Red Cell Distribution Width 16.9 % (11.5-14.5)
[2018-07-19 10:13] LABS: Blood Urea Nitrogen 26 mg/dl (8-23)
[2018-07-19] MEDS: levETIRAcetam 500 MG TABLET PO SCH (10:38)
--- NOTE | 2018-07-19 11:04 | Discharge Summary ---
Ortho Discharge Plan - General - Patient Instructions Diet: Regular Diet Activity: activity as tolerated, non weight bearing Dressing Care: May shower in 2 days - Follow Up Plan Follow Up Appointments: Сергей Maurer MD [Physician] - Disposition: er SNF Prognosis: Fair Rehab Potential: Fair I certify that the patient requires SNF services: Yes Overall status at discharge: patient is progressing back to baseline - Orders For Discharge Prescriptions: oxyCODONE/APAP [Percocet 5-325 mg] 1 tab PO Q4HP PRN #60 tablet PRN Reason: Pain Pantoprazole [Protonix] 40 mg PO QAMAC #30 tab
[2018-07-19] MEDS ORDERED: WARFARIN 5 MG TABLET PO ONE (13:35)
[2018-07-19] MEDS ORDERED: WARFARIN 5 MG TABLET ONE (13:54)
== END 2018-07-19 14:10 | DRG 536 ==
LOC: ED 13:57 → MEDSUR 19:02
PROVIDERS: ADMIT Orthopaedic Surgery; ATTEND Orthopaedic Surgery

== ENCOUNTER 2019-05-18 23:23 | Observation (INO) ==
[2019-05-18] MEDS ORDERED: 0.9 % SODIUM CHLORIDE 500 ML IV ONE (23:50)
--- NOTE | 2019-05-18 23:57 | Emergency Department Note ---
Weakness HPI - General Chief complaint: Weakness Stated complaint: weakness, fever, UTI Time Seen by Provider: 05/18/19 23:36 Source: patient, EMS Mode of arrival: ambulatory Limitations: no limitations - History of Present Illness HPI Narrative: 88-year-old male who is feeling generally weak today. He had a fever of 103 at home. He actually slid out of bed but he did not hurt himself and so EMS was called. He was recently treated for UTI and finished a course of antibiotics. He did get a flu shot. He has had a chronic cough for 3+ years - Related Data Home Medications Medication Instructions Recorded Confirmed Calcium Carbonate [Calcium] 500 mg PO DAILY 01/03/18 05/18/19 venetoclax 100 mg tablet 100 mg PO QDAY 01/17/19 05/18/19 Previous Rx's Medication Instructions Recorded levothyroxine 25 mcg tablet 25 mcg PO DAILY #90 tab 11/20/18 oxybutynin chloride 5 mg tablet 5 mg PO QHS #30 tab 01/30/19 levetiracetam 500 mg tablet 500 mg PO BID #60 tab 04/18/19 Nitrofurantoin Sr [Macrobid] 100 mg PO BID #14 cap 05/02/19 Phenazopyridine [Pyridium] 200 mg PO TIDP PRN #7 tab 05/02/19 Allergies Allergy/AdvReac Type Severity Reaction Status Date / Time No Known Drug Allergies Allergy Verified 05/18/19 23:28 Review of Systems All systems ED: reviewed and negative except as stated. Past Medical History - Past Medical History Attestation: Yes: The following information was validated with the patient. [facility] Narrative: Family History (Last Reviewed 04/24/19 @ 15:09 by Gloria Rodrigez RN) Mother Ovarian cancer Brother CVA (cerebral vascular accident) Sister CVA (cerebral vascular accident) Medical History (Last Reviewed 04/24/19 @ 15:09 by Gloria Rodrigez RN) Chronic renal failure, stage 3 (moderate) (Chronic) MORGAN on CPAP (Chronic) Chronic lymphocytic leukemia (Chronic) History of blood clots (Chronic) Rheumatic fever (Chronic) Hyperlipidemia (Chronic) History of septic shock (Chronic) GERD (gastroesophageal reflux disease) (Chronic) Substance abuse (Chronic) Daytime sleepiness (Chronic) Asthma (Chronic) Urinary frequency (Chronic) Balance problems (Chronic) BPH w urinary obs/LUTS (Chronic) Lung nodule seen on imaging study (Chronic) Hyperuricemia (Chronic) 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) Thyroid disease (Chronic) Seizure disorder (Chronic) Right knee pain (Chronic) Weakness (Chronic) Gout, unspecified (Chronic) Hypothyroidism (Chronic) EUGENIO (acute kidney injury) (Resolved) Abdominal pain (Resolved) Acute kidney failure (Resolved) Aspiration into airway (Resolved) Blood disorder (Resolved) Bronchitis (Resolved) Closed left acetabular fracture (Resolved) Community acquired bacterial pneumonia (Resolved) Community acquired pneumonia (Resolved) Constipation, unspecified (Resolved) Dry cough (Resolved) H/O Clostridium difficile infection (Resolved) High anion gap metabolic acidosis (Resolved) Hypernatremia (Resolved) Lower extremity injury (Resolved) Lymphadenopathy (Resolved) Pain, unspecified (Resolved) Pneumonia (Resolved) Pneumonia involving left lung (Resolved) Pulmonary infiltrate (Resolved) Septic arthritis (Resolved) Septic arthritis of knee, right (Resolved) Septic shock (Resolved) Subdural hematoma (Resolved) Swelling of right knee joint (Resolved) Acute urinary retention (Inactive) Arthritis due to other bacteria, right knee (Inactive) Bronchiectasis (Inactive) Cancer (Inactive) Epilepsy, unspecified, not intractable, with status epilepticus (Inactive) History of BPH (Inactive) History of pneumonia, recurrent (Inactive) Hypogammaglobulinemia (Inactive) Lymphocytosis (Inactive) Severe sepsis with septic shock (Inactive) Thrombocytopenia (Inactive) Past Surgical History (Last Reviewed 04/24/19 @ 15:09 by Gloria Rodrigez RN) History of transurethral resection of prostate (Acute) History of arthroplasty of right knee (Chronic) History of bone marrow biopsy (Chronic) History of surgery (Chronic 03/12/16) Medical history: Reports: arthritis, thyroid disease, other (Leukemia) Psychiatric history: Reports: no psych history Surgical history ED: Reports: other (knee replacements) - Social History smoking status: Never smoker Alcohol use: Reports: None Drug use: Reports: none Physical Exam No acute distress resting comfortably. Normocephalic atraumatic. Conjunctive are clear sclera white nonicteric. No nasal discharge or congestion. Oropharynx is pink and moist. Posterior pharynx with postnasal drip. Neck is supple without lymphadenopathy thyromegaly or carotid bruit. Heart is regular rate and rhythm no murmur appreciated. Lungs are basically clear to auscultation bilaterally without wheezes rales rhonchi or respiratory distress. However he does have a productive cough from time to time. Abdomen is soft nontender nondistended. No pedal edema. He is alert oriented able to answer questions appropriately give me reasonable history Limitations: no limitations Course Vital Signs Temperature 99.5 F H 05/18/19 23:24 Pulse Rate 98 H 05/18/19 23:24 Respiratory Rate 20 05/18/19 23:24 Blood Pressure 124/74 05/18/19 23:24 Pulse Oximetry (%) 96 05/18/19 23:24 Temperature 98.1 F 05/19/19 01:36 Pulse Rate 86 05/19/19 00:44 Respiratory Rate 18 05/19/19 00:44 Blood Pressure 120/60 05/19/19 00:44 Pulse Oximetry (%) 93 05/19/19 00:44 Weakness - Lab Data Lab results reviewed: Yes I reviewed the patient's lab results. Result diagrams: 05/19/19 00:00 05/19/19 00:00 Lab Results 05/19/19 05/19/19 05/19/19 Range/Units 00:00 00:00 00:00 WBC 5.9 (4.5-11.0) K/mcL RBC 3.18 L (4.50-5.90) M/mcL Hgb 10.2 L (13.5-16.5) g/dL Hct 28.9 L (41.0-55.0) % POC Hct 27.0 L (41.0-55.0) % MCV 91.1 (80.0-100.0) fL MCH 32.2 (26.0-34.0) pg MCHC 35.4 (31.0-36.0) g/dL RDW 14.9 H (11.5-14.5) % Plt Count 30 L* (140-440) K/mcL MPV 9.0 (7.4-10.4) fL Gran % 86.2 H (38.0-78.0) % Lymph % (Auto) 8.8 L (15.5-49.0) % [place] % (Auto) 4.5 (1.0-12.0) % Eos % (Auto) 0.4 (0.0-7.0) % Baso % (Auto) 0.1 (0.0-2.0) % Gran # 5.1 (1.8-8.0) K/mcL Lymph # (Auto) 0.5 L (1.5-4.8) K/mcL [place] # (Auto) 0.3 (0.1-0.9) K/mcL Eos # (Auto) 0 (0.0-0.7) K/mcL Baso # (Auto) 0 (0.0-0.3) K/mcL VBG Lactic Acid 2.4 H (0.5-2.0) mmol/L POC Sodium 139 (133-145) mmol/L Sodium 139 (133-145) mmol/L POC Potassium 4.3 (3.3-5.1) mmol/L Potassium 4.5 (3.3-5.1) mmol/L POC Chloride 100 (96-108) mmol/L Chloride 100 (96-108) mmol/L Carbon Dioxide 25 (22-30) mmol/L POC Total CO2 25 (22-30) mmol/L Anion Gap 14.0 (8-16) POC BUN 17 (8-23) mg/dl BUN 17 (8-23) mg/dl Creatinine 1.3 H (0.7-1.2) mg/dl POC Creatinine 1.4 H (0.7-1.2) mg/dl GFR Calculation 49 Glucose 120 H (70-105) mg/dL POC Glucose 118 H (70-105) mg/dL Calcium 8.7 (8.6-10.4) mg/dl POC WB Ioniz Calcium 1.08 L (1.16-1.32) mmol/L Magnesium 1.4 L (1.6-2.5) mg/dL Total Bilirubin 0.8 (0.0-1.0) mg/dL AST 21 (0-37) U/l ALT 9 (0-40) U/l Alkaline Phosphatase 65 (39-117) U/L Troponin T (0-0.03) ng/ml NT-Pro-B Natriuret Pep 483.8 H (0-450) pg/ml Total Protein 6.4 (5.9-8.4) gm/dL Albumin 3.8 (3.2-5.2) gm/dL Globulin 2.6 (2.2-3.7) gm/dL Albumin/Globulin Ratio 1.5 (1.0-2.3) Urine Color Urine Appearance Urine pH (5.0-9.0) Ur Specific [place] (1.000-1.035) Urine Protein (NEG) mg/dL Urine Glucose (UA) (NEG) mg/dL Urine Ketones (NEG) mg/dL Urine Occult Blood (<0.03) mg/dL Urine Nitrate (NEG) Urine Bilirubin (NEG) mg/dL Urine Urobilinogen (NEG) mg/dL Ur Leukocyte Esterase (NEG) /uL Urine RBC (0-1) /hpf Urine WBC (0-4) /hpf Ur Squamous Epith Cells (0-4) /hpf Urine Bacteria (0) /hpf Urine Mucus (0) /hpf Ur Culture Indicated? 05/19/19 05/19/19 Range/Units 00:00 00:40 WBC (4.5-11.0) K/mcL RBC (4.50-5.90) M/mcL Hgb (13.5-16.5) g/dL Hct (41.0-55.0) % POC Hct (41.0-55.0) % MCV (80.0-100.0) fL MCH (26.0-34.0) pg MCHC (31.0-36.0) g/dL RDW (11.5-14.5) % Plt Count (140-440) K/mcL MPV (7.4-10.4) fL Gran % (38.0-78.0) % Lymph % (Auto) (15.5-49.0) % [place] % (Auto) (1.0-12.0) % Eos % (Auto) (0.0-7.0) % Baso % (Auto) (0.0-2.0) % Gran # (1.8-8.0) K/mcL Lymph # (Auto) (1.5-4.8) K/mcL [place] # (Auto) (0.1-0.9) K/mcL Eos # (Auto) (0.0-0.7) K/mcL Baso # (Auto) (0.0-0.3) K/mcL VBG Lactic Acid (0.5-2.0) mmol/L POC Sodium (133-145) mmol/L Sodium (133-145) mmol/L POC Potassium (3.3-5.1) mmol/L Potassium (3.3-5.1) mmol/L POC Chloride (96-108) mmol/L Chloride (96-108) mmol/L Carbon Dioxide (22-30) mmol/L POC Total CO2 (22-30) mmol/L Anion Gap (8-16) POC BUN (8-23) mg/dl BUN (8-23) mg/dl Creatinine (0.7-1.2) mg/dl POC Creatinine (0.7-1.2) mg/dl GFR Calculation Glucose (70-105) mg/dL POC Glucose (70-105) mg/dL Calcium (8.6-10.4) mg/dl POC WB Ioniz Calcium (1.16-1.32) mmol/L Magnesium (1.6-2.5) mg/dL Total Bilirubin (0.0-1.0) mg/dL AST (0-37) U/l ALT (0-40) U/l Alkaline Phosphatase (39-117) U/L Troponin T 0.03 (0-0.03) ng/ml NT-Pro-B Natriuret Pep (0-450) pg/ml Total Protein (5.9-8.4) gm/dL Albumin (3.2-5.2) gm/dL Globulin (2.2-3.7) gm/dL Albumin/Globulin Ratio (1.0-2.3) Urine Color Yellow Urine Appearance Hazy Urine pH 6.0 (5.0-9.0) Ur Specific [place] 1.011 (1.000-1.035) Urine Protein 30 A (NEG) mg/dL Urine Glucose (UA) Negative (NEG) mg/dL Urine Ketones Neg (NEG) mg/dL Urine Occult Blood 0.2 A (<0.03) mg/dL Urine Nitrate Pos A (NEG) Urine Bilirubin Neg (NEG) mg/dL Urine Urobilinogen Neg (NEG) mg/dL Ur Leukocyte Esterase 250 A (NEG) /uL Urine RBC 5 H (0-1) /hpf Urine WBC > 182 H (0-4) /hpf Ur Squamous Epith Cells 0 (0-4) /hpf Urine Bacteria Mod A (0) /hpf Urine Mucus Few (0) /hpf Ur Culture Indicated? Yes Influenza swab was negative - Radiology Data Radiology results reviewed: Yes I reviewed the patient's radiology results. Chest x-ray compared to previous from June of this year shows no acute change - EKG Data EKG attestation: Yes I reviewed and interpreted this EKG., Yes There are no EKG findings of acute coronary syndrome, Yes This EKG will be read by signal inspector Disposition Pt seen by PATIENT SCHEDULER/PA only: No Clinical Impression: Thrombocytopenia Urinary tract infection Qualifiers: Urinary tract infection type: acute cystitis Hematuria presence: with hematuria Qualified Code(s): N30.01 - Acute cystitis with hematuria Summary: Febrile elderly male suspect influenza versus partially treated UTI versus exacerbation of chronic disease process. Laboratory EKG and imaging ordered Urine continues to look dirty on dipstick so we will send for microscopic. Tylenol for fever. Rocephin for the UTI. We only gave him 500 mL of IV fluid because his dipstick showed specific gravity 1.005 and he has a history of CHF Labs show significant thrombocytopenia with a platelet level of 30. Other laboratory stable per previous. His troponin T was 0.03 which is the top end of normal, he does not have EKG changes or chest pain and he does have a history of chronic kidney disease Patient will need to come into the hospital for complicated UTI with weakness. Will discuss with hospitalist Discussed the case with Dr. Gilmore, our hospitalist. He agreed to accept the patient for further care and evaluation in the hospital. I will write holding orders Disposition: Xfer As Inpt ([facility]) Condition: Fair Referrals: Geovany Ivory MD, FAAFP [Primary Care Provider] -
[2019-05-19 00:10] LABS: POC Blood Urea Nitrogen 17 mg/dl (8-23); POC CO2 25 mmol/L (22-30); POC Calcium, Ionized 1.08 mmol/L (1.16-1.32); POC Chloride 100 mmol/L (96-108); POC Creatinine 1.4 mg/dl (0.7-1.2); POC Glucose, Random 118 mg/dL (70-105); POC Potassium 4.3 mmol/L (3.3-5.1); POC Sodium 139 mmol/L (133-145)
[2019-05-19] MEDS ORDERED: ACETAMINOPHEN 325 MG TABLET PO ONE (00:45)
[2019-05-19 01:07] LABS: proBNP 483.8 pg/ml (0-450)
[2019-05-19 01:08] LABS: ALT/SGPT 9 U/l (0-40); AST/SGOT 21 U/l (0-37); Albumin 3.8 gm/dL (3.2-5.2); Albumin/Globulin Ratio 1.5 (1.0-2.3); Alkaline Phosphatase 65 U/L (39-117); Bilirubin,Total 0.8 mg/dL (0.0-1.0); Blood Urea Nitrogen 17 mg/dl (8-23); Calcium 8.7 mg/dl (8.6-10.4); Carbon Dioxide 25 mmol/L (22-30); Chloride 100 mmol/L (96-108); Globulin 2.6 gm/dL (2.2-3.7); Glomerular Filtration Rate 49; Glucose 120 mg/dL (70-105)
[2019-05-19 01:30] LABS: Basophils # (Auto) 0 K/mcL (0.0-0.3); Basophils % (Auto) 0.1 % (0.0-2.0); Eosinophils # (Auto) 0 K/mcL (0.0-0.7); Eosinophils % (Auto) 0.4 % (0.0-7.0); Granulocytes % (Auto) 86.2 % (38.0-78.0); Hematocrit 28.9 % (41.0-55.0); Hemoglobin 10.2 g/dL (13.5-16.5); Lymphocytes # (Auto) 0.5 K/mcL (1.5-4.8); Lymphocytes % (Auto) 8.8 % (15.5-49.0); Mean Cell Volume 91.1 fL (80.0-100.0); Mean Corpuscular HGB Conc 35.4 g/dL (31.0-36.0); Monocytes # (Auto) 0.3 K/mcL (0.1-0.9); Monocytes % (Auto) 4.5 % (1.0-12.0); Platelet Count 30 K/mcL (140-440); RBC 3.18 M/mcL (4.50-5.90); Red Cell Distribution Width 14.9 % (11.5-14.5); WBC 5.9 K/mcL (4.5-11.0)
[2019-05-19] MEDS ORDERED: cefTRIAXone 1 GM VIAL IV ONE (01:41)
[2019-05-19 01:47] LABS: Appearance,Urine HAZY; Bacteria,Urine MOD /hpf (0); Bilirubin,Urine NEG (NEG); Color,Urine YELLOW; Culture Indicated,Urine YES; Glucose,Urine (UA) NEGATIVE (NEG); Ketones,Urine NEG (NEG); Leukocyte Esterase,Urine 250 /uL (NEG); Mucus,Urine FEW /hpf (0); Nitrate,Urine POS (NEG); Protein,Urine 30 mg/dL (NEG); Specific Gravity,Urine 1.011 (1.000-1.035); Urine Blood 0.2 mg/dL (<0.03); Urine RBC 5 /hpf (0-1); Urine Squamous Epithelial Cell 0 /hpf (0-4); Urine WBC > 182 /hpf (0-4); Urobilinogen,Urine NEG (NEG)
[2019-05-19] MEDS ORDERED: LEVOTHYROXINE 25 MCG TABLET PO SCH (07:30)
--- NOTE | 2019-05-19 07:46 | XRay Report ---
CLINICAL INFORMATION: weakness cough COMPARISON: 07/16/2018 FINDINGS: Heart size, mediastinum and pulmonary vessels are normal. There is minor bibasilar atelectasis - no infiltrates or effusions. IMPRESSION: Minor bibasilar atelectasis Interpreted and Authenticated by: Reuben Tang 05/19/19
[2019-05-19] MEDS ORDERED: BISACODYL 10 MG SUPP.RECT PR PRN (08:56)
[2019-05-19] MEDS ORDERED: ACETAMINOPHEN 650 MG/65 ML BOTTLE IV PRN (08:56)
[2019-05-19] MEDS ORDERED: POLYETHYLENE GLYCOL 3350 17 GM PACKET PO PRN (08:56)
[2019-05-19] MEDS ORDERED: MAGNESIUM SULFATE 2 GM/50 ML BAG IV PRN (08:56)
[2019-05-19] MEDS ORDERED: MELATONIN 3 MG TABLET PO PRN (08:56)
[2019-05-19] MEDS ORDERED: ONDANSETRON 4 MG/2 ML VIAL IV PRN (08:56)
[2019-05-19] MEDS ORDERED: POTASSIUM CHLORIDE 20 MEQ PACKET PO PRN (08:56)
[2019-05-19] MEDS ORDERED: ONDANSETRON 4 MG ODT TABLET SL PRN (08:56)
--- NOTE | 2019-05-19 08:57 | Internal Med History&Physical ---
Medical - H&P: HPI Patient information: Note initiated : 05/19/19 at 8:56 am Service Date, if different from initiated Date: [] Patient: Mu Jennings a 88 y/o M admitted on 05/19/19 for weakness, fever, UTI. Chief Complaint: [] Chief complaint: Weakness History of present illness: Mr. Jennings is a 88 year old M with a known history of leukemia lymphoma/seizure disorder and known history of urine retention who presents to the ER with progressive weakness over the last week and a half. Patient endorses to lower abdominal discomfort/dribbling urine. He is gotten progressively weaker unable to function. Prior to presentation to the ER patient spiked a fever of 103 and noticed increasing urgency/lower abdominal discomfort. He was discovered by his daughter laying on the carpet after he slid off the bed. Initial work-up in the ER was consistent with pyuria, platelet 30,000, white c ount 5.9, creatinine 1.4. Patient was initiated on antibiotic coverage. Hospitalist service was consulted. At the time of evaluation patient is accompanied with his daughter Alysia Romero. Both patient and his daughter was able to provide a detailed history. Patient has been battling with recurrent UTIs and prostate issues. He underwent a cystoscopy/TURP with urethral polyp removal recently. He has been treated for UTI since then. Other than that patient denies diarrhea, headache, chest pain, shortness of breath or productive sputum. He further denies photophobia/rash. Review of systems A 10 point review system was performed and is negative except as dicussed above Medical - H&P: PMH Medical history: Chronic renal failure, stage 3 (moderate) (Chronic) MORGAN on CPAP (Chronic) Chronic lymphocytic leukemia (Chronic) History of blood clots (Chronic) Rheumatic fever (Chronic) Hyperlipidemia (Chronic) History of septic shock (Chronic) GERD (gastroesophageal reflux disease) (Chronic) Substance abuse (Chronic) Daytime sleepiness (Chronic) Asthma (Chronic) Urinary frequency (Chronic) Balance problems (Chronic) BPH w urinary obs/LUTS (Chronic) Lung nodule seen on imaging study (Chronic) Small nodule found at bronchoscopy 08/12/2017; benign on biopsy being followed radiographically Hyperuricemia (Chronic) 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) Thyroid disease (Chronic) Seizure disorder (Chronic) Right knee pain (Chronic) Weakness (Chronic) Gout, unspecified (Chronic) Hypothyroidism (Chronic) EUGENIO (acute kidney injury) (Resolved) Abdominal pain (Resolved) Acute kidney failure (Resolved) Aspiration into airway (Resolved) Blood disorder (Resolved) Bronchitis (Resolved) Closed left acetabular fracture (Resolved) Community acquired bacterial pneumonia (Resolved) Community acquired pneumonia (Resolved) Constipation, unspecified (Resolved) Dry cough (Resolved) H/O Clostridium difficile infection (Resolved) High anion gap metabolic acidosis (Resolved) Hypernatremia (Resolved) Lower extremity injury (Resolved) Lymphadenopathy (Resolved) Pain, unspecified (Resolved) Pneumonia (Resolved) Pneumonia involving left lung (Resolved) Pulmonary infiltrate (Resolved) Septic arthritis (Resolved) Septic arthritis of knee, right (Resolved) Septic shock (Resolved) Subdural hematoma (Resolved) Swelling of right knee joint (Resolved) Acute urinary retention (Inactive) Arthritis due to other bacteria, right knee (Inactive) Bronchiectasis (Inactive) Cancer (Inactive) blood Epilepsy, unspecified, not intractable, with status epilepticus (Inactive) History of BPH (Inactive) History of pneumonia, recurrent (Inactive) Hypogammaglobulinemia (Inactive) Lymphocytosis (Inactive) Severe sepsis with septic shock (Inactive) Thrombocytopenia (Inactive) Surgical History History of transurethral resection of prostate (Acute) History of arthroplasty of right knee (Chronic) History of bone marrow biopsy (Chronic) History of surgery (Chronic 03/12/16) Right knee scope incision and drainage with extensive synovectomy Family History Mother Ovarian cancer Brother CVA (cerebral vascular accident) Sister CVA (cerebral vascular accident) Social History marital status: occupational status: retired smoking status: Former smoker quit date: 06/20/63 pack-years: 25 alcohol intake frequency: holiday/special occasion only substance use type: does not use Medical - H&P: Meds Home Medications Medication Instructions Recorded Confirmed Type Calcium Carbonate [Calcium] 500 mg PO DAILY 01/03/18 05/19/19 History levothyroxine 25 mcg tablet 25 mcg PO DAILY #90 tab 11/20/18 05/19/19 Rx venetoclax 100 mg tablet 400 mg PO QDAY 01/17/19 05/19/19 History levetiracetam 500 mg tablet 500 mg PO BID #60 tab 04/18/19 05/19/19 Rx Colestipoll [Colestid] 2 gm PO BID 05/19/19 05/19/19 History Allergies Allergy/AdvReac Type Severity Reaction Status Date / Time No Known Drug Allergies Allergy Verified 05/18/19 23:28 Medical - H&P: Exam - Constitutional Vitals: Temp Pulse Resp BP Pulse Ox 98.2 F 78 16 124/64 95 05/19/19 03:00 05/19/19 03:00 05/19/19 03:00 05/19/19 03:00 05/19/19 03:00 General appearance: no acute distress Exam: Hard of hearing alert and oriented Oral cavity dry No ear nose discharge Eye movement symmetrical Head normocephalic Neck no lymphadenopathy S1-S2 occasionally irregular, ESM grade 1 Diminished breath sounds bases Abdomen soft nontender Lower extremity no cyanosis clubbing no joint swelling or erythema Skin no suspicious lesion Psych alert cooperative Neuro nonfocal Medical - H&P: Reslt - Labs CBC & Chem 7: 05/19/19 00:00 05/19/19 00:00 Labs: Short CBC 05/19/19 Range/Units 00:00 WBC 5.9 (4.5-11.0) K/mcL Hgb 10.2 L (13.5-16.5) g/dL Hct 28.9 L (41.0-55.0) % Plt Count 30 L* (140-440) K/mcL BMP 05/19/19 00:00 Sodium 139 Potassium 4.5 Chloride 100 Carbon Dioxide 25 BUN 17 Creatinine 1.3 H Glucose 120 H Calcium 8.7 Cardiac Enzymes 05/19/19 Range/Units 00:00 Troponin T 0.03 (0-0.03) ng/ml Liver Function 05/19/19 Range/Units 00:00 Total Bilirubin 0.8 (0.0-1.0) mg/dL AST 21 (0-37) U/l ALT 9 (0-40) U/l Alkaline Phosphatase 65 (39-117) U/L Albumin 3.8 (3.2-5.2) gm/dL Urine 05/19/19 Range/Units 00:40 Urine Color Yellow Urine Appearance Hazy Urine pH 6.0 (5.0-9.0) Ur Specific [place] 1.011 (1.000-1.035) Urine Protein 30 A (NEG) mg/dL Urine Glucose (UA) Negative (NEG) mg/dL Medical - H&P: A/P (1) Complicated urinary tract infection Current visit: Yes Status: Acute * Complicated UTI-with underlying urinary tension. Check renal ultrasound. Broad antibiotic coverage. De-escalate based on cultures * History of urine retention/BPH status post TURP 2018. Renal ultrasound rule out obstructive uropathy * History of lymphoma/leukemia on chemotherapy( Venetoclax) Follows with Dr. Suarez * History of hypothyroidism-continue levothyroxine * Seizure disorder continue home dose Keppra * Stage III CKD-creatinine 1.3, monitor renal function * DNR * Prophylaxis heparin Plan * Observation admit * Renal ultrasound * Antibiotic coverage * Prior medical condition management and home meds * PT OT/nutrition support * Discharge planning Medical - H&P: Qual - VTE Deep Vein Thrombosis/Pulmonary Embolism Present on Admission: No
[2019-05-19] MEDS ORDERED: HEPARIN 5,000 UNIT/ML VIAL SQ SCH (09:00)
[2019-05-19] MEDS ORDERED: CEFEPIME 2 GM in DEXTROSE 5% IN WATER 50 ML IV SCH (09:00)
[2019-05-19] MEDS ORDERED: levETIRAcetam 500 MG TABLET PO SCH (09:00)
[2019-05-19] MEDS: DOCUSATE SODIUM 100 MG CAPSULE PO SCH ×2 (10:03→22:02)
[2019-05-19] MEDS: LEVOTHYROXINE 25 MCG TABLET PO SCH (10:08)
[2019-05-19] MEDS: OXYBUTYNIN CHLORIDE 5 MG TAB.XL.24H PO SCH (10:10)
[2019-05-19] MEDS: MULTIVIT,THER IRON,CA,FA & MIN 1 TABLET PO SCH (10:11)
[2019-05-19] MEDS: CEFEPIME 2 GM VIAL IV SCH ×2 (10:11→22:02)
[2019-05-19] MEDS: levETIRAcetam 500 MG TABLET PO SCH ×2 (10:11→22:01)
[2019-05-19] MEDS: COLESTIPOLL 1 GM TABLET PO SCH ×2 (10:13→22:01)
[2019-05-19] MEDS: 0.9 % SODIUM CHLORIDE 1,000 ML IV SCH (10:51)
[2019-05-19] MEDS: 0.9 % SODIUM CHLORIDE 10 ML SYRINGE IV SCH ×2 (12:55→22:03)
--- NOTE | 2019-05-19 13:05 | Internal Med Progress Note ---
Medical - PN: Subj Patient information: Note initiated : 05/19/19 at 12:57 pm Service Date, if different from initiated Date: [] Patient: Mu Jennings a 88 y/o M admitted on 05/19/19 for weakness, fever, UTI. Chief Complaint: [] Interval history: Mr. Jennings is a 88 year old M with a known history of leukemia lymphoma/seizure disorder and known history of urine retention who presents to the ER with progressive weakness over the last week and a half. Patient endorses to lower abdominal discomfort/dribbling urine. He is gotten progressively weaker unable to function. Prior to presentation to the ER patient spiked a fever of 103 and noticed increasing urgency/lower abdominal discomfort. He was discovered by his daughter laying on the carpet after he slid off the bed. Initial work-up in the ER was consistent with pyuria, platelet 30,000, white count 5.9, creatinine 1.4. Patient was initiated on antibiotic coverage. Hospitalist service was consulted. At the time of evaluation patient is accompanied with his daughter Alysia Romero. Both patient and his daughter was able to provide a detailed history. Patient has been battling with recurrent UTIs and prostate issues. He underwent a cystoscopy/TURP with urethral polyp removal recently. He has been treated for UTI since then. Other than that patient denies diarrhea, headache, chest pain, shortness of breath or productive sputum. He further denies photophobia/rash. - Constitutional Vitals: Vital Signs Temp Pulse Resp BP Pulse Ox 97.1 F 66 20 111/65 98 05/19/19 11:52 05/19/19 11:52 05/19/19 11:52 05/19/19 11:52 05/19/19 11:52 Period Temp Pulse Resp BP Sys/Zeng Pulse Ox Last 24 Hr 97.1 F-100.4 F 64-98 16-20 111-132/58-74 93-98 Intake and Output 05/18/19 05/19/19 05/19/19 21:59 05:59 13:59 Intake Total 500 360 Balance 500 360 Weight 73.028 kg 78.018 kg Patient Weight 05/20/19 05:59 Weight 78.018 kg Intake & Output: Intake & Output 05/18/19 05/19/19 05/19/19 21:59 05:59 13:59 Intake Total 500 360 Balance 500 360 Weight 73.028 kg 78.018 kg Intake: IV 500 Sodium Chloride 0.9% 500 ml @ 500 Wide Open IV .Q0M ONE Rx#: [id number] Oral 0 360 Other: Meal Breakfast Percent of Meal Consumed 100% Feeding Ability Independent # Voids 1 2 Exam: General: Alert, Awake, No acute Distress Eyes/N/T: EOMI, PEERL, MM Head/Neck: neck supple, normocephalic atraumatic CV: 1/6 SM Pulm: diminshed at bases, no wheezing Abd: soft, nontender, +BS x4 Ext: no clubbing/cyanosis/edema Neuro: Alert, no focal deficits, moves all extremities, Skin: warm/dry Medical - PN: Obj Da - Labs CBC & Chem 7: 05/19/19 00:00 05/19/19 00:00 Labs: Abnormal Lab Results 05/19/19 05/19/19 05/19/19 00:40 00:00 00:00 RBC Hgb Hct POC Hct 27.0 L RDW Plt Count Gran % Lymph % (Auto) Lymph # (Auto) VBG Lactic Acid 2.4 H Creatinine 1.3 H POC Creatinine 1.4 H Glucose 120 H POC Glucose 118 H POC WB Ioniz Calcium 1.08 L Magnesium 1.4 L NT-Pro-B Natriuret Pep 483.8 H Urine Protein 30 A Urine Occult Blood 0.2 A Urine Nitrate Pos A Ur Leukocyte Esterase 250 A Urine RBC 5 H Urine WBC > 182 H Urine Bacteria Mod A 05/19/19 00:00 RBC 3.18 L Hgb 10.2 L Hct 28.9 L POC Hct RDW 14.9 H Plt Count 30 L* Gran % 86.2 H Lymph % (Auto) 8.8 L Lymph # (Auto) 0.5 L VBG Lactic Acid Creatinine POC Creatinine Glucose POC Glucose POC WB Ioniz Calcium Magnesium NT-Pro-B Natriuret Pep Urine Protein Urine Occult Blood Urine Nitrate Ur Leukocyte Esterase Urine RBC Urine WBC Urine Bacteria Meds: Medications Bisacodyl (Dulcolax) 10 mg NE Q2-3DAYS PRN PRN Reason: Constipation Cefepime HCl (Maxipime) 2 gm IV Q12H KE Last Admin: 05/19/19 10:11 Dose: 2 gm Documented by: Colestipol HCl (Colestid) 2 gm PO BID COUNT INCLUDES THE [facility] Last Admin: 05/19/19 10:13 Dose: 2 gm Documented by: Docusate Sodium (Colace) 100 mg PO BID COUNT INCLUDES THE [facility] Last Admin: 05/19/19 10:03 Dose: Not Given Documented by: Heparin Sodium (Porcine) (Heparin) 5,000 unit SQ Q12 COUNT INCLUDES THE [facility] Last Admin: 05/19/19 10:14 Dose: Not Given Documented by: Sodium Chloride (Sodium Chloride 0.9%) 1,000 mls @ 50 mls/hr IV .Q20H COUNT INCLUDES THE [facility] Stop: 05/21/19 20:59 Last Admin: 05/19/19 10:51 Dose: 50 mls/hr Documented by: Acetaminophen (Ofirmev) 650 mg in 65 mls @ 130 mls/hr IV Q6HP PRN; Protocol PRN Reason: Per Pain Protocol/Fever > 101 Magnesium Sulfate (Magnesium Sulfate) 2 gm in 50 mls @ 50 mls/hr IV UD PRN PRN Reason: MG = or < 1.7 Iron Carb/Multivit/[employer]/Folic Acid (Multivitamin W/Minerals) 1 tab PO DAILY COUNT INCLUDES THE [facility] Last Admin: 05/19/19 10:11 Dose: 1 tab Documented by: Levetiracetam (Keppra) 500 mg PO BID COUNT INCLUDES THE [facility] Last Admin: 05/19/19 10:11 Dose: 500 mg Documented by: Levothyroxine Sodium (Synthroid) 25 mcg PO QAMAC COUNT INCLUDES THE [facility] Last Admin: 05/19/19 10:08 Dose: 25 mcg Documented by: Melatonin (Melatonin 3mg Tablet) 3 mg PO HSP PRN PRN Reason: Insomnia Ondansetron HCl (Zofran Odt) 4 mg SL Q4-6HP PRN; Protocol PRN Reason: Nausea And Vomiting Ondansetron HCl (Zofran) 4 mg IV Q4-6HP PRN; Protocol PRN Reason: Nausea And Vomiting Oxybutynin Chloride (Ditropan Xl) 5 mg PO DAILY COUNT INCLUDES THE [facility] Last Admin: 05/19/19 10:10 Dose: Not Given Documented by: Venetoclax [ Venclexta] 100 Mg Tab 4 dose PO QDAY COUNT INCLUDES THE [facility] Last Admin: 05/19/19 09:00 Dose: Not Given Documented by: Polyethylene Glycol (Miralax) 17 gm PO DAILYP PRN PRN Reason: Constipation Potassium Chloride (Klor-Con) 40 meq PO DAILYP PRN PRN Reason: K+ < 3.5 Senna/Docusate Sodium (Senna Plus Tablet) 1 tab PO HS KE Sodium Chloride (Saline Flush) 10 ml IV Q8 KE Last Admin: 05/19/19 12:55 Dose: Not Given Documented by: Medical - PN: A/P - Time Spent With Patient Total time spent is greater than 50% in coordination of care (as documented) at patient's floor/unit and/or counseling patient: - Narrative A/P Narrative: A: *Complicated UTI w/underlying urinary retention: *h/o UR/BPH s/p TURP 2019: has seen Dr. Grey in past *h/o CLL, chronic anemia, chronic thrombocytopenia: on chemotherapy( Venetoclax), follows with Dr. Suarez *Hypothyroidism: continue levothyroxine *Seizure d/o: continue home dose Keppra *CKD III (base Cr~1.3): *Depression: Plan: -Renal ultrasound -monitor renal fxn -Antibiotic coverage -PT /OT/nutrition support -ppx: SCD (no chemical while PLT<50k) DNR Medical - PN: Qual - VTE Deep Vein Thrombosis/Pulmonary Embolism Present on Admission: No
--- NOTE | 2019-05-19 15:49 | Ultrasound Report ---
CLINICAL INFORMATION: Recurrent UTI and fever COMPARISON: None. FINDINGS: Both kidneys are normal and symmetric in size, position, and configuration: The right kidney is 11.6 x 6 cm and the left kidney is 11.8 x 6 cm. Echotexture is elevated in both kidneys compatible with medical renal disease. Scattered simple cysts throughout both kidneys ranging up to 1.3 cm inferior pole of the right kidney. A 4 mm nonobstructing stone seen in a mid calyx of the left kidney. No hydronephrosis to suggest obstructing stone. Arterial blood flow is normal on color Doppler to both kidneys The patient voided prior to procedure postvoid volume 65 cc. There are no focal bladder lesions. Amount of free fluid is noted perihepatic region IMPRESSION: 1. Hyperechoic kidneys suggesting medical renal disease 2. Scattered small renal cysts ranging up to 2.6 cm 3. 4 mm nonobstructing stone mid calyx of the left kidney. No hydronephrosis two support obstructing stone. 4. Urinary bladder unremarkable. 5. Smaller free fluid perihepatic region Interpreted and Authenticated by: Reuben Tang 05/19/19
[2019-05-19] MEDS: SENNOSIDES/DOCUSATE SODIUM 1 TAB TABLET PO SCH (22:03)
[2019-05-20 06:32] LABS: ALT/SGPT 9 U/l (0-40); AST/SGOT 18 U/l (0-37); Albumin 3.4 gm/dL (3.2-5.2); Albumin/Globulin Ratio 1.4 (1.0-2.3); Alkaline Phosphatase 57 U/L (39-117); Bilirubin,Direct < 0.2 mg/dL (0.0-0.3); Bilirubin,Total 0.6 mg/dL (0.0-1.0); Blood Urea Nitrogen 15 mg/dl (8-23); Calcium 8.3 mg/dl (8.6-10.4); Carbon Dioxide 26 mmol/L (22-30); Chloride 105 mmol/L (96-108); Globulin 2.5 gm/dL (2.2-3.7); Glomerular Filtration Rate 60; Glucose 99 mg/dL (70-105); Lactate Dehydrogenase 134 U/L (94-250); Phosphorous 3.3 mg/dL (2.7-4.5); Triglycerides 96 mg/dl (<150)
[2019-05-20 06:53] LABS: Hematocrit 26.4 % (41.0-55.0); Mean Cell Volume 93.4 fL (80.0-100.0); Mean Platelet Volume 7.7 fL (7.4-10.4); Platelet Count 32 K/mcL (140-440); RBC 2.83 M/mcL (4.50-5.90); Red Cell Distribution Width 16.2 % (11.5-14.5); WBC 2.5 K/mcL (4.5-11.0)
[2019-05-20] MEDS: 0.9 % SODIUM CHLORIDE 1,000 ML IV SCH (07:04)
[2019-05-20] MEDS: LEVOTHYROXINE 25 MCG TABLET PO SCH (07:05)
[2019-05-20 07:51] LABS: Anisocytosis 1+ (NONE SEEN); Band Neutrophils % 4 % (0-10); Lymphocytes % 11 % (15-49); Monocytes % (Manual) 10 % (1-12); Myelocytes % 1 % (0-0); Platelet Estimate MK DECR (NORMAL); RBC Morphology ABNORM (NORMAL); Reactive Lymphocytes 3 % (0-2); Segmented Neutrophils % 71 % (38-78)
[2019-05-20] MEDS ORDERED: COLESTIPOLL 1 GM TABLET PO SCH (08:00)
--- NOTE | 2019-05-20 08:22 | Internal Med Progress Note ---
Medical - PN: Subj Patient information: Note initiated : 05/20/19 at 8:20 am Service Date, if different from initiated Date: [] Patient: Mu Jennings a 88 y/o M admitted on 05/19/19 for weakness, fever, UTI. Chief Complaint: [] Interval history: Mr. Jennings is a 88 year old M with a known history of leukemia lymphoma/seizure disorder and known history of urine retention who presents to the ER with progressive weakness over the last week and a half. Patient endorses to lower abdominal discomfort/dribbling urine. He is gotten progressively weaker unable to function. Prior to presentation to the ER patient spiked a fever of 103 and noticed increasing urgency/lower abdominal discomfort. He was discovered by his daughter laying on the carpet after he slid off the bed. Initial work-up in the ER was consistent with pyuria, platelet 30,000, white count 5.9, creatinine 1.4. Patient was initiated on antibiotic coverage. Hospitalist service was consulted. At the time of evaluation patient is accompanied with his daughter Alysia Romero. Both patient and his daughter was able to provide a detailed history. Patient has been battling with recurrent UTIs and prostate issues. He underwent a cystoscopy/TURP with urethral polyp removal recently. He has been treated for UTI since then. Other than that patient denies diarrhea, headache, chest pain, shortness of breath or productive sputum. He further denies photophobia/rash. 05/20 He reports a chronic cough and also has diarrhea but denies any further complaints. No overnight events. Awaiting urine culture. Review of Systems: denies headache/fever/chills/nausea/vomiting/chest or abdominal pain/dyspnea. Otherwise see above. - Constitutional Vitals: Vital Signs Temp Pulse Resp BP Pulse Ox 98.1 F 72 18 137/66 94 05/20/19 08:00 05/20/19 08:00 05/20/19 08:00 05/20/19 08:00 05/20/19 08:00 Period Temp Pulse Resp BP Sys/Zeng Pulse Ox Last 24 Hr 97.1 F-98.2 F 66-76 14-20 111-137/57-68 94-98 Intake and Output 05/19/19 05/20/19 05/20/19 21:59 05:59 13:59 Intake Total 0 1500 Balance 0 1500 Weight 76.657 kg Intake & Output: Intake & Output 05/19/19 05/20/19 05/20/19 21:59 05:59 13:59 Intake Total 0 1500 Balance 0 1500 Weight 76.657 kg Intake: IV 1000 Sodium Chloride 0.9% 1,000 ml @ 1000 50 mls/hr IV .Q20H KE Rx#: [id number] Oral 0 500 Other: # Voids 1 1 # Bowel Movements 1 Exam: General: Alert, Awake, No acute Distress Eyes/N/T: EOMI, PEERL, MM Head/Neck: neck supple, normocephalic atraumatic CV: RRR, 1/6 SM Pulm: diminshed at bases, no wheezing/rhonchi Abd: soft, nontender, +BS x4 Ext: no clubbing/cyanosis/edema Neuro: Alert, no focal deficits, moves all extremities, Skin: warm/dry Medical - PN: Obj Da - Labs CBC & Chem 7: 05/20/19 04:34 05/20/19 04:34 Labs: Abnormal Lab Results 05/20/19 05/20/19 05/19/19 04:34 04:34 00:40 WBC 2.5 L RBC 2.83 L Hgb 9.0 L Hct 26.4 L POC Hct RDW 16.2 H Plt Count 32 L* Gran % Lymph % (Auto) Lymph # (Auto) Lymphocytes % 11 L Myelocytes % 1 H Reactive Lymphocytes 3 H Platelet Estimate Mk decr A RBC Morphology Abnorm A Anisocytosis 1+ A VBG Lactic Acid Creatinine POC Creatinine Glucose POC Glucose Calcium 8.3 L POC WB Ioniz Calcium Magnesium NT-Pro-B Natriuret Pep Urine Protein 30 A Urine Occult Blood 0.2 A Urine Nitrate Pos A Ur Leukocyte Esterase 250 A Urine RBC 5 H Urine WBC > 182 H Urine Bacteria Mod A 05/19/19 05/19/19 05/19/19 00:00 00:00 00:00 WBC RBC 3.18 L Hgb 10.2 L Hct 28.9 L POC Hct 27.0 L RDW 14.9 H Plt Count 30 L* Gran % 86.2 H Lymph % (Auto) 8.8 L Lymph # (Auto) 0.5 L Lymphocytes % Myelocytes % Reactive Lymphocytes Platelet Estimate RBC Morphology Anisocytosis VBG Lactic Acid 2.4 H Creatinine 1.3 H POC Creatinine 1.4 H Glucose 120 H POC Glucose 118 H Calcium POC WB Ioniz Calcium 1.08 L Magnesium 1.4 L NT-Pro-B Natriuret Pep 483.8 H Urine Protein Urine Occult Blood Urine Nitrate Ur Leukocyte Esterase Urine RBC Urine WBC Urine Bacteria Meds: Medications Bisacodyl (Dulcolax) 10 mg [place] Q2-3DAYS PRN PRN Reason: Constipation Cefepime HCl (Maxipime) 2 gm IV Q12H [facility] Last Admin: 05/19/19 22:02 Dose: 2 gm Documented by: Colestipol [facility] (Colestid) [facility] Docusate Sodium (Colace) 100 mg PO BID [facility] Last Admin: 05/19/19 22:02 Dose: Not Given Documented by: Sodium Chloride (Sodium Chloride 0.9%) 1,000 mls @ 50 mls/hr IV .Q20H [facility] Stop: 05/21/19 20:59 Last Admin: 05/20/19 07:04 Dose: 50 mls/hr Documented by: Acetaminophen (Ofirmev) 650 mg in 65 mls @ 130 mls/hr IV Q6HP PRN; Protocol PRN Reason: Per Pain Protocol/Fever > 101 Magnesium Sulfate (Magnesium Sulfate) 2 gm in 50 mls @ 50 mls/hr IV UD PRN PRN Reason: MG = or < 1.7 Last Admin: 05/19/19 15:26 Dose: 50 mls/hr Documented by: Iron Carb/Multivit/[place]/Folic Acid (Multivitamin W/Minerals) 1 tab PO DAILY [facility] Last Admin: 05/19/19 10:11 Dose: 1 tab Documented by: Levetiracetam (Keppra) 500 mg PO BID [facility] Last Admin: 05/19/19 22:01 Dose: 500 mg Documented by: Levothyroxine Sodium (Synthroid) 25 mcg PO QAMAC [facility] Last Admin: 05/20/19 07:05 Dose: 25 mcg Documented by: Melatonin (Melatonin 3mg Tablet) 3 mg PO HSP PRN PRN Reason: Insomnia Ondansetron HCl (Zofran Odt) 4 mg SL Q4-6HP PRN; Protocol PRN Reason: Nausea And Vomiting Ondansetron HCl (Zofran) 4 mg IV Q4-6HP PRN; Protocol PRN Reason: Nausea And Vomiting Oxybutynin Chloride (Ditropan Xl) 5 mg PO DAILY [facility] Last Admin: 05/19/19 10:10 Dose: Not Given Documented by: Venetoclax [ Venclexta] 100 Mg Tab 4 dose PO QDAY [facility] Last Admin: 05/20/19 07:41 Dose: 4 dose Documented by: Polyethylene Glycol (Miralax) 17 gm PO DAILYP PRN PRN Reason: Constipation Potassium Chloride (Klor-Con) 40 meq PO DAILYP PRN PRN Reason: K+ < 3.5 Senna/Docusate Sodium (Senna Plus Tablet) 1 tab PO HS [facility] Last Admin: 05/19/19 22:03 Dose: Not Given Documented by: Sodium Chloride (Saline Flush) 10 ml IV Q8 [facility] Last Admin: 05/19/19 22:03 Dose: Not Given Documented by: Medical - PN: A/P - Time Spent With Patient Total time spent is greater than 50% in coordination of care (as documented) at patient's floor/unit and/or counseling patient: - Narrative A/P Narrative: A: *Complicated UTI w/underlying urinary retention: -renal u/s no obstruction *h/o UR/BPH s/p TURP 2019: has seen Dr. Grey in past *h/o CLL, chronic anemia, chronic thrombocytopenia: on chemotherapy( Shree etoclax), follows with Dr. Suarez *Hypothyroidism: continue levothyroxine *Seizure d/o: continue home dose Keppra *CKD III (base Cr~1.3): *Depression: Plan: -pending UC -Antibiotic coverage -PT /OT/nutrition support -hold stool softener -ppx: SCD (no chemical while PLT<50k) DNR Medical - PN: Qual - VTE Deep Vein Thrombosis/Pulmonary Embolism Present on Admission: No
[2019-05-20] MEDS: LACTOBACILLUS 1 CAPSULE PO SCH ×3 (09:58→19:30)
[2019-05-20] MEDS: levETIRAcetam 500 MG TABLET PO SCH ×3 (09:58→19:30)
[2019-05-20] MEDS: OXYBUTYNIN CHLORIDE 5 MG TAB.XL.24H PO SCH (09:58)
[2019-05-20] MEDS: MULTIVIT,THER IRON,CA,FA & MIN 1 TABLET PO SCH (09:58)
[2019-05-20] MEDS: CEFEPIME 2 GM VIAL IV SCH ×2 (10:07→21:00)
[2019-05-20] MEDS: 0.9 % SODIUM CHLORIDE 10 ML SYRINGE IV SCH ×3 (10:07→21:44)
[2019-05-20] MEDS: DOCUSATE SODIUM 100 MG CAPSULE PO SCH (10:26)
--- NOTE | 2019-05-20 12:25 | Discharge Summary ---
Medical - DS: Prov Patient information: Note initiated : 05/20/19 at 12:22 pm Service Date, if different from initiated Date: [] Patient: Mu Jennings 88 y/o M admitted on 05/19/19 for weakness, fever, UTI. Chief Complaint: [] Date of admission: 05/19/19 02:44 Discharge date: 05/21/19 Primary care physician: Geovany Ivory M.D., F.A.A.F.P. Consults: 05/19/19 08:27 Consult to Physician [CONS] Routine Comment: late entry order Consulting Provider: Henry Gilmore Reason For Exam: Physician to Consult Medical - DS: Meds - Discharge Medications Prescriptions: Levofloxacin [Levaquin] 750 mg PO Q48 #2 tab Active and Home Medications: Home Medications Calcium Carbonate [Calcium] 500 mg PO DAILY 01/03/18 [History Confirmed 05/19/19 Last Taken 05/18/19 09:00] levothyroxine 25 mcg tablet 25 mcg PO DAILY #90 tab 11/20/18 [Rx Confirmed 05/19/19 Last Taken 05/18/19 09:00] venetoclax 100 mg tablet 400 mg PO QDAY 01/17/19 [History Confirmed 05/19/19 Last Taken 05/18/19 09:00] levetiracetam 500 mg tablet 500 mg PO BID #60 tab 04/18/19 [Rx Confirmed 05/19/19 Last Taken 05/18/19 21:00] Colestipoll [Colestid] 2 gm PO BID 05/19/19 [History Confirmed 05/19/19 Last Taken 05/18/19 21:00] Medical - DS: Hosp Hospital Course: A: *Complicated UTI w/underlying urinary retention (GNB likely E.coli): -renal u/s no obstruction *h/o UR/BPH s/p TURP 2019: has seen Dr. Grey in past *h/o CLL, chronic anemia, chronic thrombocytopenia: on chemotherapy( Venetoclax), follows with Dr. Suarez *Hypothyroidism: continue levothyroxine *Seizure d/o: continue home dose Keppra *CKD III (base Cr~1.3): *Depression: Mr. Jennings is a 88 year old M with a known history of leukemia lymphoma/seizure disorder and known history of urine retention who presents to the ER with progressive weakness over the last week and a half. Patient endorses to lower abdominal discomfort/dribbling urine. He is gotten progressively weaker unable to function. Prior to presentation to the ER patient spiked a fever of 103 and noticed increasing urgency/lower abdominal discomfort. He was discovered by his daughter laying on the carpet after he slid off the bed. Initial work-up in the ER was consistent with pyuria, platelet 30,000, white count 5.9, creatinine 1.4. Patient was initiated on antibiotic coverage. Hospitalist service was consulted. At the time of evaluation patient is accompanied with his daughter Alysia Romero. Both patient and his daughter was able to provide a detailed history. Patient has been battling with recurrent UTIs and prostate issues. He underwent a cystoscopy/TURP with urethral polyp removal recently. He has been treated for UTI since then. Other than that patient denies diarrhea, headache, chest pain, shortness of breath or productive sputum. He further denies photophobia/rash. 05/20 He reports a chronic cough and also has diarrhea but denies any further complaints. No overnight events. Awaiting urine culture. 05/21 Has had 3 loose stools in the past 24 hours. Checking C. difficile. Patient believes is from the nutritional drink he started taking while here. Otherwise no complaints. Awaiting final urine culture which is expected back this afternoon. Hopefully will discharge today pending cultures. c. diff Negative Discussed with microbiology, cultures appear to be E. coli as he has recently grown in urine cultures and has been pansensitive. Additionally, patient responding well to Levaquin and will discharge him on Levaquin. Discharge diagnosis: E. coli UTI history of urinary retention but voiding on own. Secondary discharge diagnosis: History of CLL chronic anemia chronic some thrombus cytopenia hypothyroidism seizure disorder chronic kidney disease stage III depression - Time Spent with Patient Total time spent providing and/or coordinating discharge services: Greater than 30 minutes Medical - DS: Exam - Constitutional Vitals: Vital Signs Temp Pulse Pulse Resp BP Pulse Ox 05/20/19 09:18 77 92 05/20/19 08:00 98.1 F 72 18 137/66 94 05/20/19 03:40 98.1 F 75 18 136/66 94 05/19/19 23:42 97.5 F 66 16 120/62 95 05/19/19 19:33 97.8 F 73 14 115/57 96 05/19/19 18:16 95 05/19/19 16:00 98.2 F 76 20 124/68 95 Intake and Output 05/19/19 05/20/19 05/20/19 21:59 05:59 13:59 Intake Total 50 1740 Balance 50 1740 Intake: IV 50 1000 Sodium Chloride 0.9% 1,000 ml @ 1000 50 mls/hr IV .Q20H [facility] Rx#: [id number] Oral 0 740 Other: Meal Breakfast Percent of Meal Consumed 100% Feeding Ability Assist with Tray Set Up # Voids 1 1 1 # Bowel Movements 1 Weight 76.657 kg Medical - DS: Data Labs on day of discharge: Labs from last 24 hours 05/20/19 05/20/19 04:34 04:34 WBC 2.5 L RBC 2.83 L Hgb 9.0 L Hct 26.4 L MCV 93.4 MCH 31.8 MCHC 34.0 RDW 16.2 H Plt Count 32 L* MPV 7.7 Total Counted 100 Seg Neutrophils % 71 Band Neutrophils % 4 Lymphocytes % 11 L Monocytes % (Manual) 10 Myelocytes % 1 H Reactive Lymphocytes 3 H Platelet Estimate Mk decr A RBC Morphology Abnorm A Anisocytosis 1+ A Sodium 142 Potassium 3.9 Chloride 105 Carbon Dioxide 26 Anion Gap 11.0 BUN 15 Creatinine 1.1 GFR Calculation 60 Glucose 99 Uric Acid 6.0 Calcium 8.3 L Phosphorus 3.3 Magnesium 2.2 Total Bilirubin 0.6 Direct Bilirubin < 0.2 GGT 11 AST 18 ALT 9 Alkaline Phosphatase 57 Lactate Dehydrogenase 134 Total Protein 5.9 Albumin 3.4 Globulin 2.5 Albumin/Globulin Ratio 1.4 Triglycerides 96 Preliminary micro results at discharge 05/19/19 00:40 Urine Culture - Preliminary Urine - Clean Void Mid-Stream Gram negative bacillus Medical - DS: A/P - Patient/Caregiver Discharge Instructions Activity: increase activity as tolerated Diet: Regular Diet Prescriptions: Levofloxacin [Levaquin] 750 mg PO Q48 #2 tab - Follow up Plan Follow up with: Geovany Ivory MD, FAAFP [Primary Care Provider] - Disposition: Home Health Service Prognosis: Fair Rehab Potential: Fair Overall status at discharge: patient is progressing back to baseline Medical - DS: Qual - VTE Deep Vein Thrombosis/Pulmonary Embolism Present on Admission: No
[2019-05-20] MEDS: SENNOSIDES/DOCUSATE SODIUM 1 TAB TABLET PO SCH (19:30)
[2019-05-21] MEDS: 0.9 % SODIUM CHLORIDE 1,000 ML IV SCH ×2 (01:10→03:10)
[2019-05-21] MEDS: 0.9 % SODIUM CHLORIDE 10 ML SYRINGE IV SCH ×2 (04:27→13:44)
[2019-05-21 06:22] LABS: Hematocrit 27.2 % (41.0-55.0); Hemoglobin 9.2 g/dL (13.5-16.5); Mean Cell Volume 93.5 fL (80.0-100.0); Mean Corpuscular HGB Conc 33.7 g/dL (31.0-36.0); Mean Platelet Volume 7.8 fL (7.4-10.4); Platelet Count 39 K/mcL (140-440); RBC 2.91 M/mcL (4.50-5.90); Red Cell Distribution Width 16.2 % (11.5-14.5); WBC 2.5 K/mcL (4.5-11.0)
[2019-05-21] MEDS: LEVOTHYROXINE 25 MCG TABLET PO SCH (06:59)
[2019-05-21 08:11] LABS: Anisocytosis 1+ (NONE SEEN); Lymphocytes % 22 % (15-49); Monocytes % (Manual) 5 % (1-12); Platelet Estimate MK DECR (NORMAL); Polychromasia 1+ (NONE SEEN); RBC Morphology ABNORM (NORMAL); Reactive Lymphocytes 1 % (0-2); Segmented Neutrophils % 72 % (38-78)
[2019-05-21] MEDS: MULTIVIT,THER IRON,CA,FA & MIN 1 TABLET PO SCH (09:51)
[2019-05-21] MEDS: LACTOBACILLUS 1 CAPSULE PO SCH (09:51)
[2019-05-21] MEDS: OXYBUTYNIN CHLORIDE 5 MG TAB.XL.24H PO SCH (09:51)
[2019-05-21] MEDS: levETIRAcetam 500 MG TABLET PO SCH (09:52)
[2019-05-21] MEDS: CEFEPIME 2 GM VIAL IV SCH (10:13)
--- NOTE | 2019-05-21 10:52 | Internal Med Progress Note ---
Medical - PN: Subj Patient information: Note initiated : 05/21/19 at 10:50 am Service Date, if different from initiated Date: [] Patient: Mu Jennings a 88 y/o M admitted on 05/19/19 for weakness, fever, UTI. Chief Complaint: [] Interval history: Mr. Jennings is a 88 year old M with a known history of leukemia lymphoma/seizure disorder and known history of urine retention who presents to the ER with progressive weakness over the last week and a half. Patient endorses to lower abdominal discomfort/dribbling urine. He is gotten progressively weaker unable to function. Prior to presentation to the ER patient spiked a fever of 103 and noticed increasing urgency/lower abdominal discomfort. He was discovered by his daughter laying on the carpet after he slid off the bed. Initial work-up in the ER was consistent with pyuria, platelet 30,000, white count 5.9, creatinine 1.4. Patient was initiated on antibiotic coverage. Hospitalist service was consulted. At the time of evaluation patient is accompanied with his daughter Alysia Romero. Both patient and his daughter was able to provide a detailed history. Patient has been battling with recurrent UTIs and prostate issues. He underwent a cystoscopy/TURP with urethral polyp removal recently. He has been treated for UTI since then. Other than that patient denies diarrhea, headache, chest pain, shortness of breath or productive sputum. He further denies photophobia/rash. 05/20 He reports a chronic cough and also has diarrhea but denies any further complaints. No overnight events. Awaiting urine culture. 05/21 Has had 3 loose stools in the past 24 hours. Checking C. difficile. Patient believes is from the nutritional drink he started taking while here. Otherwise no complaints. Awaiting final urine culture which is expected back this afternoon. Hopefully will discharge today pending cultures. Review of Systems: denies headache/fever/chills/nausea/vomiting/chest or abdominal pain/dyspnea. Otherwise see above. - Constitutional Vitals: Vital Signs Temp Pulse Resp BP Pulse Ox 97.9 F 66 18 131/71 97 05/21/19 08:00 05/21/19 08:00 05/21/19 08:00 05/21/19 08:00 05/21/19 08:00 Period Temp Pulse Resp BP Sys/Zeng Pulse Ox Last 24 Hr 97.7 F-99 F 61-80 16-20 100-131/54-73 94-98 Intake and Output 05/20/19 05/21/19 05/21/19 21:59 05:59 13:59 Intake Total 700 1000 Balance 700 1000 Weight 75.75 kg Intake & Output: Intake & Output 05/20/19 05/21/19 05/21/19 21:59 05:59 13:59 Intake Total 700 1000 Balance 700 1000 Weight 75.75 kg Intake: IV 1000 Sodium Chloride 0.9% 1,000 ml @ 1000 50 mls/hr IV .Q20H [facility] Rx#: [id number] Oral 700 Other: Meal Dinner Percent of Meal Consumed 100% Feeding Ability Assist with Tray Set Up # Voids 1 # Bowel Movements 1 Exam: General: Alert, Awake, No acute Distress Eyes/N/T: EOMI, PEERL, Head/Neck: neck supple, CV: RRR, 1/6 SM Pulm: diminshed at bases, no wheezing/rhonchi Abd: soft, nontender, +BS x4 Ext: no clubbing/cyanosis/edema Neuro: Alert, no focal deficits, moves all extremities, Skin: warm/dry Medical - PN: Obj Da - Labs CBC & Chem 7: 05/21/19 04:35 05/20/19 04:34 Labs: Abnormal Lab Results 05/21/19 05/20/19 05/20/19 04:35 04:34 04:34 WBC 2.5 L 2.5 L RBC 2.91 L 2.83 L Hgb 9.2 L 9.0 L Hct 27.2 L 26.4 L POC Hct RDW 16.2 H 16.2 H Plt Count 39 L* 32 L* Gran % Lymph % (Auto) Lymph # (Auto) Lymphocytes % 11 L Myelocytes % 1 H Reactive Lymphocytes 3 H Platelet Estimate Mk decr A Mk decr A RBC Morphology Abnorm A Abnorm A Polychromasia 1+ A Anisocytosis 1+ A 1+ A VBG Lactic Acid Creatinine POC Creatinine Glucose POC Glucose Calcium 8.3 L POC WB Ioniz Calcium Magnesium NT-Pro-B Natriuret Pep Urine Protein Urine Occult Blood Urine Nitrate Ur Leukocyte Esterase Urine RBC Urine WBC Urine Bacteria 05/19/19 05/19/19 05/19/19 00:40 00:00 00:00 WBC RBC Hgb Hct POC Hct 27.0 L RDW Plt Count Gran % Lymph % (Auto) Lymph # (Auto) Lymphocytes % Myelocytes % Reactive Lymphocytes Platelet Estimate RBC Morphology Polychromasia Anisocytosis VBG Lactic Acid 2.4 H Creatinine 1.3 H POC Creatinine 1.4 H Glucose 120 H POC Glucose 118 H Calcium POC WB Ioniz Calcium 1.08 L Magnesium 1.4 L NT-Pro-B Natriuret Pep 483.8 H Urine Protein 30 A Urine Occult Blood 0.2 A Urine Nitrate Pos A Ur Leukocyte Esterase 250 A Urine RBC 5 H Urine WBC > 182 H Urine Bacteria Mod A 05/19/19 00:00 WBC RBC 3.18 L Hgb 10.2 L Hct 28.9 L POC Hct RDW 14.9 H Plt Count 30 L* Gran % 86.2 H Lymph % (Auto) 8.8 L Lymph # (Auto) 0.5 L Lymphocytes % Myelocytes % Reactive Lymphocytes Platelet Estimate RBC Morphology Polychromasia Anisocytosis VBG Lactic Acid Creatinine POC Creatinine Glucose POC Glucose Calcium POC WB Ioniz Calcium Magnesium NT-Pro-B Natriuret Pep Urine Protein Urine Occult Blood Urine Nitrate Ur Leukocyte Esterase Urine RBC Urine WBC Urine Bacteria Meds: Medications Bisacodyl (Dulcolax) 10 mg SD Q2-3DAYS PRN PRN Reason: Constipation Cefepime HCl (Maxipime) 2 gm IV Q12H [facility] Last Admin: 05/21/19 10:13 Dose: 2 gm Documented by: Acetaminophen (Ofirmev) 650 mg in 65 mls @ 130 mls/hr IV Q6HP PRN; Protocol PRN Reason: Per Pain Protocol/Fever > 101 Magnesium Sulfate (Magnesium Sulfate) 2 gm in 50 mls @ 50 mls/hr IV UD PRN PRN Reason: MG = or < 1.7 Last Infusion: 05/19/19 22:00 Dose: Infused Documented by: Iron Carb/Multivit/Soil Surveyor/Folic Acid (Multivitamin W/Minerals) 1 tab PO DAILY [facility] Last Admin: 05/21/19 09:51 Dose: 1 tab Documented by: Lactobacillus Rhamnosus (Culturelle) 1 cap PO BID [facility] Last Admin: 05/21/19 09:51 Dose: 1 cap Documented by: Levetiracetam (Keppra) 500 mg PO BID [facility] Last Admin: 05/21/19 09:52 Dose: 500 mg Documented by: Levothyroxine Sodium (Synthroid) 25 mcg PO QAMAC [facility] Last Admin: 05/21/19 06:59 Dose: 25 mcg Documented by: Melatonin (Melatonin 3mg Tablet) 3 mg PO HSP PRN PRN Reason: Insomnia Ondansetron HCl (Zofran Odt) 4 mg SL Q4-6HP PRN; Protocol PRN Reason: Nausea And Vomiting Ondansetron HCl (Zofran) 4 mg IV Q4-6HP PRN; Protocol PRN Reason: Nausea And Vomiting Oxybutynin Chloride (Ditropan Xl) 5 mg PO DAILY [facility] Last Admin: 05/21/19 09:51 Dose: 5 mg Documented by: Venetoclax [ Venclexta] 100 Mg Tab 4 dose PO QDAY [facility] Last Admin: 05/21/19 07:25 Dose: 4 dose Documented by: Polyethylene Glycol (Miralax) 17 gm PO DAILYP PRN PRN Reason: Constipation Potassium Chloride (Klor-Con) 40 meq PO DAILYP PRN PRN Reason: K+ < 3.5 Senna/Docusate Sodium (Senna Plus Tablet) 1 tab PO HS [facility] Last Admin: 05/20/19 19:30 Dose: Not Given Documented by: Sodium Chloride (Saline Flush) 10 ml IV Q8 [facility] Last Admin: 05/21/19 04:27 Dose: Not Given Documented by: Medical - PN: A/P - Time Spent With Patient Total time spent is greater than 50% in coordination of care (as documented) at patient's floor/unit and/or counseling patient: - Narrative A/P Narrative: A: *Complicated UTI w/underlying urinary retention: -renal u/s no obstruction *h/o UR/BPH s/p TURP 2019: has seen Dr. Grey in past *h/o CLL, chronic anemia, chronic thrombocytopenia: on chemotherapy( Venetoclax), follows with Dr. Suarez *Hypothyroidism: continue levothyroxine *Seizure d/o: continue home dose Keppra *CKD III (base Cr~1.3): *Depression: *Diarrhea: Plan: -pending UC -Antibiotic coverage -c. diff pending -PT /OT/nutrition support -ppx: SCD (no chemical while PLT<50k) DNR Medical - PN: Qual - VTE Deep Vein Thrombosis/Pulmonary Embolism Present on Admission: No
[2019-05-21] MEDS ORDERED: LOPERAMIDE 2 MG CAPSULE PO PRN (12:53)
== END 2019-05-21 16:05 | disposition home health service (06) ==
LOC: MEDSUR 23:23 → ED 23:23 → MEDSUR 05-19 02:44
PROVIDERS: ADMIT Internal Medicine; ATTEND Internal Medicine

== ENCOUNTER 2020-01-04 11:10 | Inpatient (IN) ==
[2020-01-04] MEDS ORDERED: IOPAMIDOL 100 ML BOTTLE IV ONE ×2 (11:11→15:20)
[2020-01-04] MEDS ORDERED: PIPERACILLIN SODIUM/TAZOBACTAM 3.375 GM in DEXTROSE 5% IN WATER 50 ML IV ONE (11:25)
[2020-01-04] MEDS ORDERED: ACETAMINOPHEN 325 MG TABLET PO ONE (11:25)
[2020-01-04] MEDS ORDERED: ONDANSETRON 4 MG/2 ML VIAL IV ONE (11:25)
[2020-01-04] MEDS ORDERED: 0.9 % SODIUM CHLORIDE 1,000 ML IV ONE (11:25)
--- NOTE | 2020-01-04 11:48 | Emergency Department Note ---
Weakness HPI General Chief complaint: Weakness Stated complaint: Weakness, fever Time Seen by Provider: 01/04/20 11:23 Source: patient Mode of arrival: ambulatory Limitations: no limitations History of Present Illness HPI Narrative: Narrative: 89-year-old male sent over from minor care for fever confusion productive cough with likely right lower lobe pneumonia on chest x- ray. I received report from Francisco Escoto PA-C prior to him coming over. He has been sick for a couple days now and has had nausea and vomiting as well. Known history of CLL for which he receives IVIG. I reviewed Francisco's note. Patient is very hard of hearing which makes communication difficult-he is wearing bilateral hearing aids Related Data Home Medications Medication Instructions Recorded Confirmed calcium carbonate [Calcium 500] 1,200 mg PO QDAY 12/25/19 01/04/20 levetiracetam [Keppra] 500 mg PO BID 12/25/19 01/04/20 loperamide 2 mg PO PRN PRN MDD 8 01/04/20 01/04/20 Previous Rx's Medication Instructions Recorded levothyroxine 25 mcg tablet 25 mcg PO DAILY #90 tab 11/20/18 lift chair #1 ea 09/03/19 Allergies Allergy/AdvReac Type Severity Reaction Status Date / Time No Known Drug Allergies Allergy Verified 01/04/20 11:11 Review of Systems ROS ROS Narrative: Narrative: All systems ED: reviewed and negative except as stated. PFSH Narrative Patient History Narrative: Narrative: Medical/Surgical/Family History All Active Problems (Updated 01/04/20 @ 22:48 by Jonny Gomez MD) Respiratory failure (Acute) Pneumonia (Acute) Upper respiratory infection (Acute) Cough (Acute) Thrombocytopenia (Acute) Chronic renal failure, stage 3 (moderate) (Chronic) MORGAN on CPAP (Chronic) Chronic lymphocytic leukemia (Chronic) History of blood clots (Chronic) Rheumatic fever (Chronic) Hyperlipidemia (Chronic) History of septic shock (Chronic) GERD (gastroesophageal reflux disease) (Chronic) Substance abuse (Chronic) Daytime sleepiness (Chronic) Asthma (Chronic) Umbilical hernia without mention of obstruction or gangrene (Chronic) Balance problems (Chronic) BPH w urinary obs/LUTS (Chronic) Lung nodule seen on imaging study (Chronic) Hyperuricemia (Chronic) 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) Thyroid disease (Chronic) Seizure disorder (Chronic) Right knee pain (Chronic) Weakness (Chronic) Gout, unspecified (Chronic) Hypothyroidism (Chronic) Medical History Abdominal pain (Resolved) Acute kidney failure (Resolved) Acute urinary retention (Inactive) EUGENIO (acute kidney injury) (Resolved) Arthritis due to other bacteria, right knee (Inactive) Aspiration into airway (Resolved) Asthma (Chronic) Balance problems (Chronic) Blood disorder (Resolved) BPH w urinary obs/LUTS (Chronic) Bronchiectasis (Inactive) Bronchitis (Resolved) Cancer (Inactive) blood Chronic lymphocytic leukemia (Chronic) Chronic renal failure, stage 3 (moderate) (Chronic) Closed left acetabular fracture (Resolved) Community acquired bacterial pneumonia (Resolved) Community acquired pneumonia (Resolved) Constipation, unspecified (Resolved) Daytime sleepiness (Chronic) Dry cough (Resolved) Epilepsy, unspecified, not intractable, with status epilepticus (Inactive) GERD (gastroesophageal reflux disease) (Chronic) Gout, unspecified (Chronic) H/O Clostridium difficile infection (Resolved) High anion gap metabolic acidosis (Resolved) History of blood clots (Chronic) History of BPH (Inactive) History of pneumonia, recurrent (Inactive) History of septic shock (Chronic) Hyperlipidemia (Chronic) Hypernatremia (Resolved) Hyperuricemia (Chronic) Hypogammaglobulinemia (Inactive) Hypothyroidism (Chronic) Lower extremity injury (Resolved) Lung nodule seen on imaging study (Chronic) Small nodule found at bronchoscopy 08/12/2017; benign on biopsy being followed radiographically Lymphadenopathy (Resolved) Lymphocytosis (Inactive) 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) MORGAN on CPAP (Chronic) Pain, unspecified (Resolved) Pneumonia (Resolved) Pneumonia involving left lung (Resolved) Pulmonary infiltrate (Resolved) Rheumatic fever (Chronic) Right knee pain (Chronic) Seizure disorder (Chronic) Septic arthritis (Resolved) Septic arthritis of knee, right (Resolved) Septic shock (Resolved) Severe sepsis with septic shock (Inactive) Subdural hematoma (Resolved) Substance abuse (Chronic) Swelling of right knee joint (Resolved) Thrombocytopenia (Inactive) Thyroid disease (Chronic) Weakness (Chronic) Surgical History History of arthroplasty of right knee (Chronic) History of bone marrow biopsy (Chronic) History of surgery (Chronic 03/12/16) Right knee scope incision and drainage with extensive synovectomy History of transurethral resection of prostate (Acute) Family History Mother Ovarian cancer Brother CVA (cerebral vascular accident) Sister CVA (cerebral vascular accident) Social History Smoking Status: Former smoker Alcohol Intake Frequency: holiday/special occasion only Substance Use: does not use Exam Narrative Narrative: Narrative: Bilateral hearing aids noted. He is alert and able to answer questions but it is difficult to communicate with him secondary to his hearing loss. He is cooperative for interview and exam though. Conjunctive are clear sclerae white nonicteric. No nasal discharge or congestion. Oropharynx is pink and moist. Tongue is midline. Face is symmetrical. Neck is supple without lymphadenopathy thyromegaly or carotid bruit. Heart is mildly tachycardic. I cannot hear a murmur. Lungs with productive cough on taking a deep breath. Faint rales bilaterally. Abdomen is soft nontender nondistended. No pedal edema. General Limitations: no limitations Course Vital Signs Vital signs: Vital Signs Temperature 99.8 F H 01/04/20 11:11 Pulse Rate 109 H 01/04/20 11:11 Respiratory Rate 20 01/04/20 11:11 Blood Pressure 171/83 01/04/20 11:11 Pulse Oximetry (%) 98 01/04/20 11:11 Temperature 97.9 F 01/04/20 15:30 Pulse Rate 68 01/04/20 16:01 Respiratory Rate 19 01/04/20 16:01 Blood Pressure 114/53 01/04/20 16:01 Pulse Oximetry (%) 98 01/04/20 21:03 [facility] Narrative Medical decision making narrative: Narrative: Sent over from [facility]. We will continue the work-up with laboratory and ABG. Differential diagnosis includes pneumonia from COVID versus aspiration versus other bacterial versus bronchitis. CT scan is ordered. Tylenol is ordered for his fever. Start Zosyn after blood cultures. COVID swab sent ABG shows a pH of 7.52 with a PCO2 of 40 and a PO2 of 36. We will start him on oxygen. EKG is unrevealing CT scan shows consistent with pneumonia as well. Labs show thrombocytopenia which is chronic Discussed findings with Dr. Gomez our hospitalist who agreed to accept the patient for further care and evaluation in the hospital Lab Data Lab results reviewed: Yes I reviewed the patient's lab results. Result diagrams: 01/04/20 11:31 01/04/20 11:30 Labs: Lab Results 01/04/20 01/04/20 01/04/20 Range/Units 11:30 11:31 11:31 WBC 4.7 (4.50-11.00) K/mcL RBC 3.54 L (4.63-6.08) M/mcL Hgb 10.7 L (13.7-17.5) g/dL Hct 34.0 L (40.1-51.0) % MCV 96.0 (80.0-100.0) fL MCH 30.2 (26.0-34.0) pg MCHC 31.5 (31.0-36.0) g/dL RDW 14.6 H (11.5-14.5) % Plt Count 46 L* (140-440) K/mcL MPV 11.3 H (7.4-10.4) fL Gran % 81.0 H (38.0-78.0) % Lymph % (Auto) 11.8 L (15.5-49.0) % [place] % (Auto) 6.8 (1.0-12.0) % Eos % (Auto) 0.4 (0.0-7.0) % Baso % (Auto) 0 (0.0-2.0) % Gran # 3.83 (1.80-8.00) K/mcL Lymph # (Auto) 0.56 L (1.50-4.80) K/mcL [place] # (Auto) 0.32 (0.10-0.90) K/mcL Eos # (Auto) 0.02 (0.00-0.70) K/mcL Baso # (Auto) 0 (0.00-0.30) K/mcL VBG Lactic Acid Cancelled Sodium 139 (133-145) mmol/L Potassium 3.8 (3.3-5.1) mmol/L Chloride 98 (96-108) mmol/L Carbon Dioxide 28 (22-30) mmol/L Anion Gap 13.0 (8-16) BUN 25 H (8-23) mg/dl Creatinine 1.2 (0.7-1.2) mg/dl GFR Calculation 53 Glucose 107 H (70-105) mg/dL Calcium 8.8 (8.6-10.4) mg/dl Magnesium 1.5 L (1.6-2.5) mg/dL Total Bilirubin 0.5 (0.0-1.0) mg/dL AST 22 (0-37) U/l ALT 7 (0-40) U/l Alkaline Phosphatase 80 (39-117) U/L Troponin T (0-0.03) ng/ml Total Protein 7.2 (5.9-8.4) gm/dL Albumin 4.1 (3.2-5.2) gm/dL Globulin 3.1 (2.2-3.7) gm/dL Albumin/Globulin Ratio 1.3 (1.0-2.3) Procalcitonin (<0.10) ng/mL 01/04/20 01/04/20 01/04/20 Range/Units 11:31 11:32 11:50 WBC (4.50-11.00) K/mcL RBC (4.63-6.08) M/mcL Hgb (13.7-17.5) g/dL Hct (40.1-51.0) % MCV (80.0-100.0) fL MCH (26.0-34.0) pg MCHC (31.0-36.0) g/dL RDW (11.5-14.5) % Plt Count (140-440) K/mcL MPV (7.4-10.4) fL Gran % (38.0-78.0) % Lymph % (Auto) (15.5-49.0) % [place] % (Auto) (1.0-12.0) % Eos % (Auto) (0.0-7.0) % Baso % (Auto) (0.0-2.0) % Gran # (1.80-8.00) K/mcL Lymph # (Auto) (1.50-4.80) K/mcL [place] # (Auto) (0.10-0.90) K/mcL Eos # (Auto) (0.00-0.70) K/mcL Baso # (Auto) (0.00-0.30) K/mcL VBG Lactic Acid 1.9 Sodium (133-145) mmol/L Potassium (3.3-5.1) mmol/L Chloride (96-108) mmol/L Carbon Dioxide (22-30) mmol/L Anion Gap (8-16) BUN (8-23) mg/dl Creatinine (0.7-1.2) mg/dl GFR Calculation Glucose (70-105) mg/dL Calcium (8.6-10.4) mg/dl Magnesium (1.6-2.5) mg/dL Total Bilirubin (0.0-1.0) mg/dL AST (0-37) U/l ALT (0-40) U/l Alkaline Phosphatase (39-117) U/L Troponin T < 0.01 (0-0.03) ng/ml Total Protein (5.9-8.4) gm/dL Albumin (3.2-5.2) gm/dL Globulin (2.2-3.7) gm/dL Albumin/Globulin Ratio (1.0-2.3) Procalcitonin 0.15 (<0.10) ng/mL Radiology Data Radiology results reviewed: Yes I reviewed the patient's radiology results. Radiology results narrative: Chest x-ray from [facility] shows possible right lower lobe pneumonia. CT scan is ordered-this is consistent with pneumonia as well. Chronic Bronchiectasis seen EKG Data EKG #1: EKG attestation: Yes I reviewed and interpreted this EKG. EKG results narrative: EKG shows a rate of 103 sinus tachycardia with a left axis deviation. Q waves are noted in septal leads. No evidence of ACS Discharge Plan Patient/Caregiver Discharge Instructions Pt seen by DUBBING MACHINE OPERATOR/PA only: No Clinical Impression: Thrombocytopenia Respiratory failure Qualifiers: Chronicity: acute Respiratory failure complication: hypoxia Qualified Code(s): J96.01 - Acute respiratory failure with hypoxia Pneumonia Qualifiers: Pneumonia type: due to unspecified organism Laterality: right Lung location: lower lobe of lung Qualified Code(s): J18.9 - Pneumonia, unspecified organism Patient Disposition: Xfer As Inpt ([facility]) Condition: Serious Discharge Date/Time: 01/04/20 15:04
[2020-01-04 12:19] LABS: Basophils # (Auto) 0 K/mcL (0.00-0.30); Basophils % (Auto) 0 % (0.0-2.0); Eosinophils # (Auto) 0.02 K/mcL (0.00-0.70); Eosinophils % (Auto) 0.4 % (0.0-7.0); Hemoglobin 10.7 g/dL (13.7-17.5); Lymphocytes # (Auto) 0.56 K/mcL (1.50-4.80); Lymphocytes % (Auto) 11.8 % (15.5-49.0); Mean Corpuscular HGB Conc 31.5 g/dL (31.0-36.0); Mean Platelet Volume 11.3 fL (7.4-10.4); Monocytes # (Auto) 0.32 K/mcL (0.10-0.90); Monocytes % (Auto) 6.8 % (1.0-12.0); RBC 3.54 M/mcL (4.63-6.08); Red Cell Distribution Width 14.6 % (11.5-14.5); WBC 4.7 K/mcL (4.50-11.00)
[2020-01-04 12:34] LABS: ALT/SGPT 7 U/l (0-40); AST/SGOT 22 U/l (0-37); Albumin 4.1 gm/dL (3.2-5.2); Albumin/Globulin Ratio 1.3 (1.0-2.3); Alkaline Phosphatase 80 U/L (39-117); Bilirubin,Total 0.5 mg/dL (0.0-1.0); Blood Urea Nitrogen 25 mg/dl (8-23); Calcium 8.8 mg/dl (8.6-10.4); Carbon Dioxide 28 mmol/L (22-30); Chloride 98 mmol/L (96-108); Globulin 3.1 gm/dL (2.2-3.7); Glomerular Filtration Rate 53; Glucose 107 mg/dL (70-105)
[2020-01-04 12:37] LABS: Platelet Count 46 K/mcL (140-440)
--- NOTE | 2020-01-04 13:15 | Cat Scan Report ---
INDICATION: SOB fever, CLL history, RLL pneumonia COMPARISON: Previous chest CT scan dated 10/21/2017. Previous chest x-rays dated 01/04/2020, 05/18/2019, 07/16/2018 TECHNIQUE: Axial contrast enhanced images through the chest. Sagittally and coronally reformatted images. MIP reformatted images. 80ml Isovue 370 injected intravenously. FINDINGS: Lungs:Mild infiltrate in the lingular segment of left upper lobe and medial segment of the right middle lobe. There is mild infiltrate in the posterior segment of the right upper lobe. Infiltrate is predominantly tree in bud. This is a nonspecific appearance and usually represents infection. There is bilateral lower lobe pulmonary parenchymal density with air bronchograms. Appearance is consistent with pneumonia. Previous CT demonstrated mild bilateral lower lobe infiltrate and bronchiectasis. Appearance is worse at this time. This may be persistent worsening pneumonia or recurrent pneumonia. There is a nonspecific 7 mm right lower lobe nodule, image 76 Mediastinum, vascular: Ascending thoracic aorta is dilated to 4.9 cm. This is unchanged. Main pulmonary artery is within normal limits. There is no pulmonary embolism. No pathologic mediastinal or hilar lymphadenopathy Heart:No cardiomegaly. No pericardial effusion. No significant coronary artery calcification Pleura:There is no significant pleural effusion. No soft tissue or calcified pleural-based mass Axilla, supraclavicular regions, chest wall:No pathologic axillary or supraclavicular adenopathy. There is a right sided chemotherapy infusion port and catheter Musculoskeletal:No thoracic compression fracture or lytic lesion. No sternal or rib lesion Upper Abdomen:Maximum AP dimension of the spleen measures 15 cm consistent with splenomegaly. There are low density lesions in the liver which are stable and probably benign IMPRESSION: 1. Mild scattered parenchymal infiltrates bilaterally. 2. Bilateral lower lobe parenchymal density with bronchiectasis. Findings are consistent with pneumonia. Abnormality is increased since 10/21/2017 3. Ascending thoracic aorta is dilated, stable 4. Stable splenomegaly. Low-density lesions in the liver are unchanged The exam was performed using radiation dose optimization techniques including, but not limited to, automated exposure control, adjustment of the mA and/or kV according to patient size and use of iterative reconstruction technique. Interpreted and Authenticated by: Reuben Lazo 01/04/20
--- NOTE | 2020-01-04 13:59 | Internal Med History&Physical ---
HPI History of Present Illness Patient information: Note initiated : 01/04/20 at 1:59 pm Service Date, if different from initiated Date: [] Patient: Mu Jennings a 89 y/o M admitted on for Weakness, fever. Chief Complaint: Fever confusion Ms. Jenninsg is a 89-year-old with a known history of CLL/lymphoma/seizure disorder who lives in [place] along with her daughter. He was in his baseline state of health until 24 hours prior to presentation started feeling weak. He woke up this morning with fever, shortness of breath and became confused. He was brought into the ER for evaluation. Initial work-up was consistent with bilateral infiltrates consistent with pneumonia. ABG reveals PO2 36 with sats in mid 60s. Patient was started on antibiotic after cultures were drawn. Started on supplemental oxygen. Hospital service was consulted. At the time of evaluation patient is alert and respond to commands. He feels a lot cain. He denies sick contacts. He denies skin rash, joint pain, rash headache or photophobia. Review of systems 10 point review system was performed and is negative except for ones cussed above [facility] Medical History Abdominal pain (Resolved) Acute kidney failure (Resolved) Acute urinary retention (Inactive) EUGENIO (acute kidney injury) (Resolved) Arthritis due to other bacteria, right knee (Inactive) Aspiration into airway (Resolved) Asthma (Chronic) Balance problems (Chronic) Blood disorder (Resolved) BPH w urinary obs/LUTS (Chronic) Bronchiectasis (Inactive) Bronchitis (Resolved) Cancer (Inactive) blood Chronic lymphocytic leukemia (Chronic) Chronic renal failure, stage 3 (moderate) (Chronic) Closed left acetabular fracture (Resolved) Community acquired bacterial pneumonia (Resolved) Community acquired pneumonia (Resolved) Constipation, unspecified (Resolved) Daytime sleepiness (Chronic) Dry cough (Resolved) Epilepsy, unspecified, not intractable, with status epilepticus (Inactive) GERD (gastroesophageal reflux disease) (Chronic) Gout, unspecified (Chronic) H/O Clostridium difficile infection (Resolved) High anion gap metabolic acidosis (Resolved) History of blood clots (Chronic) History of BPH (Inactive) History of pneumonia, recurrent (Inactive) History of septic shock (Chronic) Hyperlipidemia (Chronic) Hypernatremia (Resolved) Hyperuricemia (Chronic) Hypogammaglobulinemia (Inactive) Hypothyroidism (Chronic) Lower extremity injury (Resolved) Lung nodule seen on imaging study (Chronic) Small nodule found at bronchoscopy 08/12/2017; benign on biopsy being followed radiographically Lymphadenopathy (Resolved) Lymphocytosis (Inactive) 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) MORGAN on CPAP (Chronic) Pain, unspecified (Resolved) Pneumonia (Resolved) Pneumonia involving left lung (Resolved) Pulmonary infiltrate (Resolved) Rheumatic fever (Chronic) Right knee pain (Chronic) Seizure disorder (Chronic) Septic arthritis (Resolved) Septic arthritis of knee, right (Resolved) Septic shock (Resolved) Severe sepsis with septic shock (Inactive) Subdural hematoma (Resolved) Substance abuse (Chronic) Swelling of right knee joint (Resolved) Thrombocytopenia (Inactive) Thyroid disease (Chronic) Weakness (Chronic) Surgical History History of arthroplasty of right knee (Chronic) History of bone marrow biopsy (Chronic) History of surgery (Chronic 03/12/16) Right knee scope incision and drainage with extensive synovectomy History of transurethral resection of prostate (Acute) Family History Mother Ovarian cancer Brother CVA (cerebral vascular accident) Sister CVA (cerebral vascular accident) Social History marital status: occupational status: retired smoking status: Former smoker quit date: 06/20/1963 pack-years: 25 alcohol intake frequency: holiday/special occasion only substance use type: does not use MEDS/ALLERGIES Home Medications and Allergies Home Medications Medication Instructions Recorded Confirmed Type levothyroxine 25 mcg tablet 25 mcg PO DAILY #90 tab 11/20/18 01/04/20 Rx lift chair #1 ea 09/03/19 01/04/20 Rx calcium carbonate [Calcium 500] 1,200 mg PO QDAY 12/25/19 01/04/20 History levetiracetam [Keppra] 500 mg PO BID 12/25/19 01/04/20 History Allergies Allergy/AdvReac Type Severity Reaction Status Date / Time No Known Drug Allergies Allergy Verified 01/04/20 11:11 EXAM Constitutional Vitals: Temp Pulse Resp BP Pulse Ox 99.8 F H 84 16 141/68 97 01/04/20 12:10 01/04/20 13:36 01/04/20 13:36 01/04/20 13:12 01/04/20 13:36 Head normocephalic Oral cavity moist No ear nose discharge Eye movement symmetrical Neck supple no lymphadenopathy S1-S2 occasionally irregular Labored breathing on 2 L oxygen Nondistended nontender abdomen Lower extremity no cyanosis clubbing or joint swelling Skin no suspicious lesion Psych anxious but alert cooperative Neuro moving all 4 extremities, higher function normal DATA Data Completed and Pending Labs on day of discharge: Labs from last 24 hours 01/04/20 01/04/20 01/04/20 12:47 11:50 11:32 WBC RBC Hgb Hct MCV MCH MCHC RDW Plt Count MPV Gran % Lymph % (Auto) [place] % (Auto) Eos % (Auto) Baso % (Auto) Gran # Lymph # (Auto) [place] # (Auto) Eos # (Auto) Baso # (Auto) VBG Lactic Acid 1.9 Sodium Potassium Chloride Carbon Dioxide Anion Gap BUN Creatinine GFR Calculation Glucose Calcium Magnesium Total Bilirubin AST ALT Alkaline Phosphatase Troponin T Total Protein Albumin Globulin Albumin/Globulin Ratio Procalcitonin 0.15 Nasal/Oral COVID-19 PCR Pending COVID-19 PCR Interp Pending 01/04/20 01/04/20 01/04/20 11:31 11:31 11:31 WBC 4.7 RBC 3.54 L Hgb 10.7 L Hct 34.0 L MCV 96.0 MCH 30.2 MCHC 31.5 RDW 14.6 H Plt Count 46 L* MPV 11.3 H Gran % 81.0 H Lymph % (Auto) 11.8 L [place] % (Auto) 6.8 Eos % (Auto) 0.4 Baso % (Auto) 0 Gran # 3.83 Lymph # (Auto) 0.56 L [place] # (Auto) 0.32 Eos # (Auto) 0.02 Baso # (Auto) 0 VBG Lactic Acid Cancelled Sodium Potassium Chloride Carbon Dioxide Anion Gap BUN Creatinine GFR Calculation Glucose Calcium Magnesium Total Bilirubin AST ALT Alkaline Phosphatase Troponin T < 0.01 Total Protein Albumin Globulin Albumin/Globulin Ratio Procalcitonin Nasal/Oral COVID-19 PCR COVID-19 PCR Interp 01/04/20 11:30 WBC RBC Hgb Hct MCV MCH MCHC RDW Plt Count MPV Gran % Lymph % (Auto) [place] % (Auto) Eos % (Auto) Baso % (Auto) Gran # Lymph # (Auto) [place] # (Auto) Eos # (Auto) Baso # (Auto) VBG Lactic Acid Sodium 139 Potassium 3.8 Chloride 98 Carbon Dioxide 28 Anion Gap 13.0 BUN 25 H Creatinine 1.2 GFR Calculation 53 Glucose 107 H Calcium 8.8 Magnesium 1.5 L Total Bilirubin 0.5 AST 22 ALT 7 Alkaline Phosphatase 80 Troponin T Total Protein 7.2 Albumin 4.1 Globulin 3.1 Albumin/Globulin Ratio 1.3 Procalcitonin Nasal/Oral COVID-19 PCR COVID-19 PCR Interp A/P Narrative A/P Narrative: * Acute hypoxic respiratory failure-continue high flow oxygen/pulmonary toilet * Bilateral pneumonia rule out COVID. Aspiration versus community acquired. Initiate antibiotic coverage/ST eval. * Low magnesium start replacement * History of leukemia/lymphoma-stable. Thrombocytopenia at 46. managed by oncology * Seizure disorder continue Keppra * Hypothyroidism on thyroxine * Chronic urinary retention/BPH status post TURP 2018. * Chronic kidney disease stage III. Creatinine baseline 1.3. * Generalized deconditioning * Prophylax Heparin Plan * Antibiotic coverage * Inpatient PCU admission. Anticipate minimum 2 midnight hospitalization * High flow oxygen * COVID-19 testing * Pre-existing medical condition management on home medications * PT OT nutrition support * Discharge planning Time Spent With Patient Time: Total time spent is greater than 50% in coordination of care (as documented) at patient's floor/unit and/or counseling patient:
[2020-01-04] MEDS ORDERED: MAGNESIUM SULFATE 2 GM/50 ML BAG IV PRN (15:20)
[2020-01-04] MEDS ORDERED: METOPROLOL TARTRATE 5 MG/5 ML VIAL IV PRN (15:20)
[2020-01-04] MEDS ORDERED: ACETAMINOPHEN 325 MG TABLET PO PRN (15:20)
[2020-01-04] MEDS ORDERED: POTASSIUM CHLORIDE 20 MEQ PACKET PO PRN (15:20)
[2020-01-04] MEDS ORDERED: ONDANSETRON 4 MG/2 ML VIAL IV PRN (15:20)
[2020-01-04] MEDS ORDERED: ONDANSETRON 4 MG ODT TABLET SL PRN (15:20)
[2020-01-04] MEDS ORDERED: hydrALAZINE 20 MG/ML VIAL IV PRN (15:20)
[2020-01-04] MEDS ORDERED: MELATONIN 3 MG TABLET PO PRN (15:20)
[2020-01-04] MEDS ORDERED: BISACODYL 10 MG SUPP.RECT PR PRN (15:20)
[2020-01-04] MEDS ORDERED: POLYETHYLENE GLYCOL 3350 17 GM PACKET PO PRN (15:20)
[2020-01-04] MEDS ORDERED: ACETAMINOPHEN 650 MG/65 ML BOTTLE IV PRN (15:20)
[2020-01-04] MEDS ORDERED: LEVOFLOXACIN 750 MG/150 ML BAG IV SCH (16:00)
[2020-01-04] MEDS: 0.9 % SODIUM CHLORIDE 10 ML SYRINGE IV SCH ×2 (16:25→21:11)
[2020-01-04] MEDS: PIPERACILLIN SODIUM/TAZOBACTAM 2.25 GM in DEXTROSE 5% IN WATER 50 ML IV SCH ×2 (18:14→23:56)
[2020-01-04] MEDS: DOCUSATE SODIUM 100 MG CAPSULE PO SCH (20:58)
[2020-01-04] MEDS ORDERED: SENNOSIDES/DOCUSATE SODIUM 1 TAB TABLET PO SCH (21:00)
[2020-01-04] MEDS: HEPARIN 5,000 UNIT/ML VIAL SQ SCH (21:11)
[2020-01-04] MEDS: LOPERAMIDE 2 MG CAPSULE PO PRN (21:11)
[2020-01-05] MEDS: PIPERACILLIN SODIUM/TAZOBACTAM 2.25 GM in DEXTROSE 5% IN WATER 50 ML IV SCH ×4 (05:47→23:26)
[2020-01-05] MEDS: 0.9 % SODIUM CHLORIDE 10 ML SYRINGE IV SCH ×4 (05:47→20:56)
[2020-01-05] MEDS: LOPERAMIDE 2 MG CAPSULE PO PRN ×4 (06:25→15:18)
[2020-01-05 07:16] LABS: ALT/SGPT 9 U/l (0-40); AST/SGOT 22 U/l (0-37); Albumin 3.5 gm/dL (3.2-5.2); Albumin/Globulin Ratio 1.3 (1.0-2.3); Alkaline Phosphatase 66 U/L (39-117); Bilirubin,Direct < 0.2 mg/dL (0.0-0.3); Bilirubin,Total 0.6 mg/dL (0.0-1.0); Blood Urea Nitrogen 20 mg/dl (8-23); Carbon Dioxide 28 mmol/L (22-30); Chloride 100 mmol/L (96-108); Globulin 2.6 gm/dL (2.2-3.7); Glomerular Filtration Rate 53; Glucose 94 mg/dL (70-105); Lactate Dehydrogenase 203 U/L (94-250); Phosphorous 3.8 mg/dL (2.7-4.5); Triglycerides 71 mg/dl (<150); Uric Acid 5.2 mg/dL (2.5-8.0)
[2020-01-05 07:30] LABS: Hematocrit 28.5 % (40.1-51.0); Hemoglobin 8.8 g/dL (13.7-17.5); Mean Cell Volume 96.3 fL (80.0-100.0); Mean Corpuscular HGB Conc 30.9 g/dL (31.0-36.0); Mean Platelet Volume 10.1 fL (7.4-10.4); Platelet Count 32 K/mcL (140-440); RBC 2.96 M/mcL (4.63-6.08); Red Cell Distribution Width 14.6 % (11.5-14.5); WBC 2.1 K/mcL (4.50-11.00)
[2020-01-05] MEDS: DOCUSATE SODIUM 100 MG CAPSULE PO SCH (07:35)
[2020-01-05 07:51] LABS: Anisocytosis FEW (NONE SEEN); Band Neutrophils % 4 % (0-10); Lymphocytes % 17 % (15-49); Monocytes % (Manual) 14 % (1-12); Platelet Estimate MK DECR (NORMAL); RBC Morphology ABNORM (NORMAL); Reactive Lymphocytes 1 % (0-2); Segmented Neutrophils % 64 % (38-78)
[2020-01-05] MEDS ORDERED: LOPERAMIDE (PP) 2MG TABLET (#12) PO PRN (08:32)
[2020-01-05] MEDS: LEVOTHYROXINE 25 MCG TABLET PO SCH ×2 (08:47→08:49)
[2020-01-05] MEDS: HEPARIN 5,000 UNIT/ML VIAL SQ SCH (08:49)
[2020-01-05] MEDS ORDERED: MULTIVIT,THER IRON,CA,FA & MIN 1 TABLET PO SCH (09:00)
[2020-01-05] MEDS ORDERED: levETIRAcetam 500 MG TABLET PO SCH (09:00)
[2020-01-05] MEDS ORDERED: CALCIUM (OYSTER SHELL) 500 MG TABLET PO SCH (09:00)
--- NOTE | 2020-01-05 09:09 | Internal Med Progress Note ---
SUBJECTIVE Subjective Patient information: Note initiated : 01/05/20 at 9:00 am Service Date, if different from initiated Date: [] Patient: Mu Jennings 89 y/o M admitted on 01/04/20 for Weakness, fever. Chief Complaint: [] Ms. Jennings is a 89-year-old with a known history of CLL/lymphoma/seizure disorder who lives in [place] along with her daughter. He was in his baseline state of health until 24 hours prior to presentation started feeling weak. He woke up this morning with fever, shortness of breath and became confused. He was brought into the ER for evaluation. Initial work-up was consistent with bilateral infiltrates consistent with pneumonia. ABG reveals PO2 36 with sats in mid 60s. Patient was started on antibiotic after cultures were drawn. Started on supplemental oxygen. Hospital service was consulted. At the time of evaluation patient is alert and respond to commands. He feels a lot cain. He denies sick contacts. He denies skin rash, joint pain, rash headache or photophobia. 01/04-patient doing better than previous day l. On 3 L oxygen. Feels a lot better. Continuing antibiotic coverage for bilateral lower lobe pneumonia. High risk patient in the setting of immunocompromise state with underlying lymphoma/leukemia. Rapid COVID-19 negative. Continue contact the question. Multiple BM consistent with chronic diarrhea. Constitutional Vitals: Vital Signs Temp Pulse Resp BP Pulse Ox 98.2 F 65 21 133/64 100 01/05/20 04:01 01/05/20 04:25 01/05/20 04:25 01/05/20 04:01 01/05/20 04:25 Period Temp Pulse Resp BP Sys/Zeng Pulse Ox Last 24 Hr 97.9 F-99.8 F 58-109 9-24 112-171/53-107 89-100 Intake and Output 01/04/20 01/05/20 01/05/20 21:59 05:59 13:59 Intake Total 1100 50 250 Output Total 275 1350 Balance 825 -1300 250 Weight 71.668 kg Alert oriented Persistent dyspnea No anxiety No telemetry events Intake & Output: Intake & Output 01/04/20 01/05/20 01/05/20 21:59 05:59 13:59 Intake Total 1100 50 250 Output Total 275 1350 Balance 825 -1300 250 Weight 71.668 kg Intake: IV 1050 50 250 Sodium Chloride 0.9% 1,000 ml @ 1000 Wide Open IV .Q0M ONE Rx#: [id number] Zosyn 2.25 gm In Dextrose 5% in 50 50 50 Water 50 ml @ 100 mls/hr IV Q6H [facility] Rx#:[id number] Oral 50 Output: Void Amount 275 900 Urine/Stool Mix 450 Other: Meal Dinner Percent of Meal Consumed 25% Stool Size Moderate Stool Consistency Liquid # Bowel Movements 1 2 OBJ DATA Labs CBC & Chem 7: 01/05/20 04:26 01/05/20 04:26 Labs: Abnormal Lab Results 01/05/20 01/05/20 01/04/20 04:26 04:26 11:31 WBC 2.1 L RBC 2.96 L 3.54 L Hgb 8.8 L 10.7 L Hct 28.5 L 34.0 L MCHC 30.9 L RDW 14.6 H 14.6 H Plt Count 32 L* 46 L* MPV 11.3 H Gran % 81.0 H Lymph % (Auto) 11.8 L Lymph # (Auto) 0.56 L Monocytes % (Manual) 14 H Platelet Estimate Mk decr A RBC Morphology Abnorm A Anisocytosis Few A BUN Glucose Calcium 8.0 L Magnesium 01/04/20 11:30 WBC RBC Hgb Hct MCHC RDW Plt Count MPV Gran % Lymph % (Auto) Lymph # (Auto) Monocytes % (Manual) Platelet Estimate RBC Morphology Anisocytosis BUN 25 H Glucose 107 H Calcium Magnesium 1.5 L Meds: Medications Acetaminophen (Tylenol) 650 mg PO Q4-6HP PRN; Protocol PRN Reason: Per Pain Protocol/Fever > 101 Bisacodyl (Dulcolax) 10 mg MS Q2-3DAYS PRN PRN Reason: Constipation Calcium Carbonate/Glycine (Oscal) 1,000 mg PO QDAY [facility] Last Admin: 01/05/20 08:49 Dose: 1,000 mg Documented by: Docusate Sodium (Colace) 100 mg PO BID [facility] Last Admin: 01/05/20 07:35 Dose: Not Given Documented by: Heparin Sodium (Porcine) (Heparin) 5,000 unit SQ Q12 [facility] Last Admin: 01/05/20 08:49 Dose: Not Given Documented by: Hydralazine HCl (Apresoline) 10 mg IV Q4-6HP PRN PRN Reason: Hypertension Acetaminophen (Ofirmev) 650 mg in 65 mls @ 130 mls/hr IV Q6HP PRN; Protocol PRN Reason: Per Pain Protocol/Fever > 101 Magnesium Sulfate (Magnesium Sulfate) 2 gm in 50 mls @ 50 mls/hr IV UD PRN PRN Reason: MG = or < 1.7 Last Infusion: 01/05/20 07:43 Dose: Infused Documented by: Piperacillin Sod/Tazobactam (Sod 2.25 gm/ Dextrose) 50 mls @ 100 mls/hr IV Q6H [facility]; Protocol Last Infusion: 01/05/20 07:42 Dose: Infused Documented by: Levofloxacin (Levaquin) 750 mg in 150 mls @ 100 mls/hr IV Q48H [facility]; Protocol Last Infusion: 01/05/20 07:42 Dose: Infused Documented by: Iron Carb/Multivit/Body Masker/Folic Acid (Multivitamin W/Minerals) 1 tab PO DAILY [facility] Last Admin: 01/05/20 08:12 Dose: 1 tab Documented by: Levetiracetam (Keppra) 500 mg PO BID [facility] Last Admin: 01/05/20 08:46 Dose: 500 mg Documented by: Levothyroxine Sodium (Synthroid) 25 mcg PO QAMAC [facility] Last Admin: 01/05/20 08:49 Dose: Not Given Documented by: Loperamide HCl (Imodium) 2 mg PO PRN PRN PRN Reason: Diarrhea Last Admin: 01/05/20 08:12 Dose: 2 mg Documented by: Melatonin (Melatonin 3mg Tablet) 3 mg PO HSP PRN PRN Reason: Insomnia Metoprolol Tartrate (Lopressor) 5 mg IV Q5M PRN PRN Reason: Heart Rate > 140 bpm Ondansetron HCl (Zofran Odt) 4 mg SL Q4-6HP PRN; Protocol PRN Reason: Nausea And Vomiting Ondansetron HCl (Zofran) 4 mg IV Q4-6HP PRN; Protocol PRN Reason: Nausea And Vomiting Polyethylene Glycol (Miralax) 17 gm PO DAILYP PRN PRN Reason: Constipation Potassium Chloride (Klor-Con) 40 meq PO DAILYP PRN PRN Reason: K+ < 3.5 Senna/Docusate Sodium (Senna Plus Tablet) 1 tab PO HS [facility] Last Admin: 01/04/20 20:58 Dose: Not Given Documented by: Sodium Chloride (Saline Flush) 10 ml IV Q8 [facility] Last Admin: 01/05/20 05:47 Dose: 10 ml Documented by: A/P Narrative A/P Narrative: * Acute hypoxic respiratory failure-second to bilateral lower lobe pneumonia. On 3 L oxygen. Clinically improved since admission. Continue pulmonary toilet * Bilateral pneumonia- Aspiration versus community acquired. ST eval/antibiotic coverage/aspiration precautions * Low magnesium start replacement * History of leukemia/lymphoma-stable. * Thrombocytopenia chronic at baseline around 30. * Seizure disorder continue Keppra * Hypothyroidism continue thyroxine * Chronic urinary retention/BPH status post TURP 2018. * Chronic kidney disease stage III. Creatinine baseline 1.3. * Generalized deconditioning-continue PT OT * Prophylax -SCD, discontinue heparin Plan * Continue antibiotic coverage * ST eval/aspiration precaution * Wean oxygen as tolerated * Pre-existing medical condition management on home medications * PT OT nutrition support * Discharge planning Time Spent With Patient Time: Total time spent is greater than 50% in coordination of care (as documented) at patient's floor/unit and/or counseling patient: Total time spent with greater than 50% in coordination of care (as documented) at patient's floor/unit and/or counseling patient:: Greater than 35 minutes QUALITY VTE Deep Vein Thrombosis/Pulmonary Embolism Present on Admission: No
[2020-01-05] MEDS ORDERED: POTASSIUM CHLORIDE 20 MEQ PACKET PO PRN (09:13)
[2020-01-05] MEDS ORDERED: ONDANSETRON 4 MG ODT TABLET SL PRN (09:13)
[2020-01-05] MEDS ORDERED: ACETAMINOPHEN 650 MG/65 ML BOTTLE IV PRN (09:13)
[2020-01-05] MEDS ORDERED: IOPAMIDOL 100 ML BOTTLE IV ONE (09:13)
[2020-01-05] MEDS ORDERED: ONDANSETRON 4 MG/2 ML VIAL IV PRN (09:13)
[2020-01-05] MEDS ORDERED: MELATONIN 3 MG TABLET PO PRN (09:13)
[2020-01-05] MEDS ORDERED: METOPROLOL TARTRATE 5 MG/5 ML VIAL IV PRN (09:13)
[2020-01-05] MEDS ORDERED: ACETAMINOPHEN 325 MG TABLET PO PRN (09:13)
[2020-01-05] MEDS ORDERED: hydrALAZINE 20 MG/ML VIAL IV PRN (09:13)
[2020-01-05] MEDS ORDERED: MAGNESIUM SULFATE 2 GM/50 ML BAG IV PRN (09:13)
--- NOTE | 2020-01-05 14:23 | Internal Med Progress Note ---
SUBJECTIVE Subjective Patient information: Note initiated : 01/05/20 at 2:14 pm Service Date, if different from initiated Date: [] Patient: Mu Jennings 89 y/o M admitted on 01/04/20 for Weakness, fever. Chief Complaint: [] Interval history: Ms. Jennings is a 89-year-old with a known history of CLL/lymphoma/seizure disorder who lives in [place] along with her daughter. He was in his baseline state of health until 24 hours prior to presentation started feeling weak. He woke up this morning with fever, shortness of breath and became confused. He was brought into the ER for evaluation. Initial work- up was consistent with bilateral infiltrates consistent with pneumonia. ABG reveals PO2 36 with sats in mid 60s. Patient was started on antibiotic after cultures were drawn. Started on supplemental oxygen. Hospital service was consulted. At the time of evaluation patient is alert and respond to commands. He feels a lot cain. He denies sick contacts. He denies skin rash, joint pain, rash headache or photophobia. 01/04-patient doing better than previous day l. On 3 L oxygen. Feels a lot better. Continuing antibiotic coverage for bilateral lower lobe pneumonia. High risk patient in the setting of immunocompromise state with underlying lymphoma/leukemia. Rapid COVID-19 negative. Continue contact the question. Multiple BM consistent with chronic diarrhea. 01/05 Constitutional Vitals: Vital Signs Temp Pulse Resp BP Pulse Ox 98.2 F 71 14 153/56 97 01/05/20 04:01 01/05/20 09:10 01/05/20 08:01 01/05/20 08:01 01/05/20 09:10 Period Temp Pulse Resp BP Sys/Zeng Pulse Ox Last 24 Hr 97.9 F-99.8 F 58-84 9-24 112-153/53-90 93-100 Intake and Output 01/05/20 01/05/20 01/05/20 05:59 13:59 21:59 Intake Total 50 490 Output Total 1350 Balance -1300 490 Weight 71.668 kg Patient Weight 01/06/20 05:59 Weight 71.668 kg Intake & Output: Intake & Output 01/05/20 01/05/20 01/05/20 05:59 13:59 21:59 Intake Total 50 490 Output Total 1350 Balance -1300 490 Weight 71.668 kg Intake: IV 50 250 Zosyn 2.25 gm In Dextrose 5% in 50 50 Water 50 ml @ 100 mls/hr IV Q6H [facility] Rx#:[id number] Oral 240 Output: Void Amount 900 Urine/Stool Mix 450 Other: Meal Breakfast Percent of Meal Consumed 100% Stool Size Moderate Stool Consistency Liquid # Voids 1 # Bowel Movements 2 1 Exam: General: Alert, Awake, No acute Distress Eyes/N/T: EOMI, Head/Neck: neck supple, CV: RRR, No murmurs, Pulm: no wheezing Abd: soft, nontender, +BS x4 Ext: no clubbing/cyanosis/edema Neuro: Alert, no focal deficits, moves all extremities, Skin: warm/dry OBJ DATA Labs CBC & Chem 7: 01/05/20 04:26 01/05/20 04:26 Labs: Abnormal Lab Results 01/05/20 01/05/20 01/04/20 04:26 04:26 11:31 WBC 2.1 L RBC 2.96 L 3.54 L Hgb 8.8 L 10.7 L Hct 28.5 L 34.0 L MCHC 30.9 L RDW 14.6 H 14.6 H Plt Count 32 L* 46 L* MPV 11.3 H Gran % 81.0 H Lymph % (Auto) 11.8 L Lymph # (Auto) 0.56 L Monocytes % (Manual) 14 H Platelet Estimate Mk decr A RBC Morphology Abnorm A Anisocytosis Few A BUN Glucose Calcium 8.0 L Magnesium 01/04/20 11:30 WBC RBC Hgb Hct MCHC RDW Plt Count MPV Gran % Lymph % (Auto) Lymph # (Auto) Monocytes % (Manual) Platelet Estimate RBC Morphology Anisocytosis BUN 25 H Glucose 107 H Calcium Magnesium 1.5 L Meds: Medications Acetaminophen (Tylenol) 650 mg PO Q4-6HP PRN; Protocol PRN Reason: Per Pain Protocol/Fever > 101 Calcium Carbonate/Glycine (Oscal) 1,000 mg PO QDAY [facility] Hydralazine HCl (Apresoline) 10 mg IV Q4-6HP PRN PRN Reason: Hypertension Acetaminophen (Ofirmev) 650 mg in 65 mls @ 130 mls/hr IV Q6HP PRN; Protocol PRN Reason: Per Pain Protocol/Fever > 101 Levofloxacin (Levaquin) 750 mg in 150 mls @ 100 mls/hr IV Q48H [facility]; Protocol Magnesium Sulfate (Magnesium Sulfate) 2 gm in 50 mls @ 50 mls/hr IV UD PRN PRN Reason: MG = or < 1.7 Piperacillin Sod/Tazobactam (Sod 2.25 gm/ Dextrose) 50 mls @ 100 mls/hr IV Q6H [facility]; Protocol Last Admin: 01/05/20 11:35 Dose: 100 mls/hr Documented by: Iron Carb/Multivit/[place]/Folic Acid (Multivitamin W/Minerals) 1 tab PO DAILY [facility] Levetiracetam (Keppra) 500 mg PO BID [facility] Levothyroxine Sodium (Synthroid) 25 mcg PO QAMAC [facility] Loperamide HCl (Imodium) 2 mg PO PRN PRN PRN Reason: Diarrhea Last Admin: 01/05/20 11:35 Dose: 2 mg Documented by: Melatonin (Melatonin 3mg Tablet) 3 mg PO HSP PRN PRN Reason: Insomnia Metoprolol Tartrate (Lopressor) 5 mg IV Q5M PRN PRN Reason: Heart Rate > 140 bpm Ondansetron HCl (Zofran Odt) 4 mg SL Q4-6HP PRN; Protocol PRN Reason: Nausea And Vomiting Ondansetron HCl (Zofran) 4 mg IV Q4-6HP PRN; Protocol PRN Reason: Nausea And Vomiting Potassium Chloride (Klor-Con) 40 meq PO DAILYP PRN PRN Reason: K+ < 3.5 Sodium Chloride (Saline Flush) 10 ml IV Q8 [facility] Last Admin: 01/05/20 11:35 Dose: 10 ml Documented by: A/P Narrative A/P Narrative: A: *Acute hypoxic respiratory failure: 2/2 PNA -On 3 L oxygen with sats 97-100 *b/l PNA (Aspiration vs CAP): *Bronchiectasis: *HypoMag: *h/o CLL/Chronic Anemia, Chronic cytopenia: On chemotherapy follows with Dr. Suarez -platelets baseline around 30. *h/o Seizure disorder: on Keppra *Hypothyroidism: *Depression: *Chronic UTI//UR/BPH: status post TURP 2018. *CKD III: baseline 1.3. *Generalized deconditioning: Plan: -Continue antibiotic coverage, pending cultures -ST eval/aspiration precaution -Wean oxygen as tolerated. IS/Acapella -echo pending -PT OT nutrition support -ppx: SCD (no chemical while PLT<50k) DNR Time Spent With Patient Time: Total time spent is greater than 50% in coordination of care (as documented) at patient's floor/unit and/or counseling patient: QUALITY VTE Deep Vein Thrombosis/Pulmonary Embolism Present on Admission: No
[2020-01-05] MEDS: levETIRAcetam 500 MG TABLET PO SCH (20:55)
[2020-01-05 23:56] LABS: Appearance,Urine CLEAR; Bacteria,Urine 0 /hpf (0); Bilirubin,Urine NEG (NEG); Color,Urine YELLOW; Culture Indicated,Urine NO; Glucose,Urine (UA) NEGATIVE (NEG); Ketones,Urine NEG (NEG); Leukocyte Esterase,Urine NEG /uL (NEG); Nitrate,Urine NEG (NEG); Protein,Urine NEG (NEG); Urine Blood 0.03 mg/dL (<0.03); Urine RBC < 1 /hpf (0-1); Urine Squamous Epithelial Cell 0 /hpf (0-4); Urine Transitional Epi Cells < 1 /hpf (0-2); Urine WBC 1 /hpf (0-4); Urobilinogen,Urine NEG (NEG)
[2020-01-06] MEDS: PIPERACILLIN SODIUM/TAZOBACTAM 2.25 GM in DEXTROSE 5% IN WATER 50 ML IV SCH ×3 (05:45→17:55)
[2020-01-06] MEDS: 0.9 % SODIUM CHLORIDE 10 ML SYRINGE IV SCH ×3 (05:46→21:21)
[2020-01-06 06:41] LABS: Hematocrit 27.6 % (40.1-51.0); Hemoglobin 8.6 g/dL (13.7-17.5); Mean Cell Volume 95.8 fL (80.0-100.0); Mean Corpuscular HGB Conc 31.2 g/dL (31.0-36.0); Mean Platelet Volume 11.1 fL (7.4-10.4); Platelet Count 36 K/mcL (140-440); RBC 2.88 M/mcL (4.63-6.08); Red Cell Distribution Width 14.2 % (11.5-14.5); WBC 1.6 K/mcL (4.50-11.00)
[2020-01-06 06:58] LABS: ALT/SGPT 7 U/l (0-40); AST/SGOT 22 U/l (0-37); Albumin 3.4 gm/dL (3.2-5.2); Albumin/Globulin Ratio 1.3 (1.0-2.3); Alkaline Phosphatase 63 U/L (39-117); Bilirubin,Direct < 0.2 mg/dL (0.0-0.3); Bilirubin,Total 0.4 mg/dL (0.0-1.0); Blood Urea Nitrogen 18 mg/dl (8-23); Calcium 8.3 mg/dl (8.6-10.4); Carbon Dioxide 28 mmol/L (22-30); Chloride 102 mmol/L (96-108); Globulin 2.7 gm/dL (2.2-3.7); Glomerular Filtration Rate 48; Glucose 96 mg/dL (70-105); Lactate Dehydrogenase 189 U/L (94-250); Triglycerides 107 mg/dl (<150); Uric Acid 4.8 mg/dL (2.5-8.0)
--- NOTE | 2020-01-06 07:23 | XRay Report ---
INDICATION: Weakness. Fever. TECHNIQUE: AP portable upright chest x-ray COMPARISON: Previous chest CT scan dated 01/04/2020. Previous chest x-rays dated 01/04/2020 and 05/18/2019 FINDINGS:There is a right-sided Port-A-Cath with catheter tip in the superior vena cava Lungs:Lungs are negative. No focal pulmonary parenchymal infiltrate or mass Heart, vascular:No significant cardiomegaly. Pulmonary vascularity is normal. No pulmonary edema or pulmonary congestion Mediastinum, gayle:No mediastinal widening. No hilar mass Pleura:No pleural fluid. No pleural-based mass or calcification Skeletal:Negative. IMPRESSION: 1. No acute abnormality 2. No interval change since 01/04/2020 Interpreted and Authenticated by: Reuben Lazo 01/06/20
[2020-01-06 07:58] LABS: Band Neutrophils % 1 % (0-10); Lymphocytes % 33 % (15-49); Monocytes % (Manual) 2 % (1-12); Platelet Estimate MK DECR (NORMAL); RBC Morphology NORMAL (NORMAL); Reactive Lymphocytes 1 % (0-2); Segmented Neutrophils % 63 % (38-78)
--- NOTE | 2020-01-06 08:21 | Internal Med Progress Note ---
SUBJECTIVE Subjective Patient information: Note initiated : 01/06/20 at 8:16 am Service Date, if different from initiated Date: [] Patient: Mu Jennings 89 y/o M admitted on 01/04/20 for Weakness, fever. Chief Complaint: [] Interval history: Ms. eJnnings is a 89-year-old with a known history of CLL/lymphoma/seizure disorder who lives in [place] along with her daughter. He was in his baseline state of health until 24 hours prior to presentation started feeling weak. He woke up this morning with fever, shortness of breath and became confused. He was brought into the ER for evaluation. Initial work- up was consistent with bilateral infiltrates consistent with pneumonia. ABG reveals PO2 36 with sats in mid 60s. Patient was started on antibiotic after cultures were drawn. Started on supplemental oxygen. Hospital service was consulted. At the time of evaluation patient is alert and respond to commands. He feels a lot cain. He denies sick contacts. He denies skin rash, joint pain, rash headache or photophobia. 01/04-patient doing better than previous day l. On 3 L oxygen. Feels a lot better. Continuing antibiotic coverage for bilateral lower lobe pneumonia. High risk patient in the setting of immunocompromise state with underlying lymphoma/leukemia. Rapid COVID-19 negative. Continue contact the question. Multiple BM consistent with chronic diarrhea. 01/05 No new complaints overnight events. Patient on room air. Has a chronic cough but no change. Review of Systems: denies headache/fever/chills/nausea/vomiting/chest or abdominal pain/. Otherwise see above. Constitutional Vitals: Vital Signs Temp Pulse Resp BP Pulse Ox 98.2 F 72 18 138/78 96 01/06/20 04:00 01/06/20 04:00 01/06/20 04:00 01/06/20 04:00 01/06/20 04:00 Period Temp Pulse Resp BP Sys/Zeng Pulse Ox Last 24 Hr 97.8 F-98.3 F 65-73 18-18 127-138/78-96 95-100 Intake and Output 01/05/20 01/06/20 01/06/20 21:59 05:59 13:59 Intake Total 290 50 50 Output Total 200 750 Balance 90 -700 50 Weight 71.441 kg Intake & Output: Intake & Output 01/05/20 01/06/20 01/06/20 21:59 05:59 13:59 Intake Total 290 50 50 Output Total 200 750 Balance 90 -700 50 Weight 71.441 kg Intake: IV 50 50 50 Zosyn 2.25 gm In Dextrose 5% in 50 50 50 Water 50 ml @ 100 mls/hr IV Q6H [facility] Rx#:[id number] Oral 240 Output: Void Amount 200 750 Other: Meal Lunch Percent of Meal Consumed 100% Stool Consistency Liquid # Voids 1 # Bowel Movements 1 Exam: General: Alert, Awake, No acute Distress Eyes/N/T: EOMI, Head/Neck: neck supple, CV: RRR, No murmurs, Pulm: no rales/wheezing Abd: soft, nontender, +BS x4 Ext: no clubbing/cyanosis/edema Neuro: Alert, no focal deficits, moves all extremities, Skin: warm/dry OBJ DATA Labs CBC & Chem 7: 01/06/20 04:39 01/06/20 04:39 Labs: Abnormal Lab Results 01/06/20 01/06/20 01/05/20 04:39 04:39 21:00 WBC 1.6 L RBC 2.88 L Hgb 8.6 L Hct 27.6 L MCHC RDW Plt Count 36 L* MPV 11.1 H Gran % Lymph % (Auto) Lymph # (Auto) Monocytes % (Manual) Platelet Estimate Mk decr A RBC Morphology Anisocytosis BUN Creatinine 1.3 H Glucose Calcium 8.3 L Magnesium Urine Occult Blood 0.03 A 01/05/20 01/05/20 01/04/20 04:26 04:26 11:31 WBC 2.1 L RBC 2.96 L 3.54 L Hgb 8.8 L 10.7 L Hct 28.5 L 34.0 L MCHC 30.9 L RDW 14.6 H 14.6 H Plt Count 32 L* 46 L* MPV 11.3 H Gran % 81.0 H Lymph % (Auto) 11.8 L Lymph # (Auto) 0.56 L Monocytes % (Manual) 14 H Platelet Estimate Mk decr A RBC Morphology Abnorm A Anisocytosis Few A BUN Creatinine Glucose Calcium 8.0 L Magnesium Urine Occult Blood 01/04/20 11:30 WBC RBC Hgb Hct MCHC RDW Plt Count MPV Gran % Lymph % (Auto) Lymph # (Auto) Monocytes % (Manual) Platelet Estimate RBC Morphology Anisocytosis BUN 25 H Creatinine Glucose 107 H Calcium Magnesium 1.5 L Urine Occult Blood Meds: Medications Acetaminophen (Tylenol) 650 mg PO Q4-6HP PRN; Protocol PRN Reason: Per Pain Protocol/Fever > 101 Calcium Carbonate/Glycine (Oscal) 1,000 mg PO QDAY [facility] Hydralazine HCl (Apresoline) 10 mg IV Q4-6HP PRN PRN Reason: Hypertension Acetaminophen (Ofirmev) 650 mg in 65 mls @ 130 mls/hr IV Q6HP PRN; Protocol PRN Reason: Per Pain Protocol/Fever > 101 Levofloxacin (Levaquin) 750 mg in 150 mls @ 100 mls/hr IV Q48H [facility]; Protocol Magnesium Sulfate (Magnesium Sulfate) 2 gm in 50 mls @ 50 mls/hr IV UD PRN PRN Reason: MG = or < 1.7 Piperacillin Sod/Tazobactam (Sod 2.25 gm/ Dextrose) 50 mls @ 100 mls/hr IV Q6H [facility]; Protocol Last Infusion: 01/06/20 06:40 Dose: Infused Documented by: Iron Carb/Multivit/[place]/Folic Acid (Multivitamin W/Minerals) 1 tab PO DAILY [facility] Levetiracetam (Keppra) 500 mg PO BID [facility] Last Admin: 01/05/20 20:55 Dose: 500 mg Documented by: Levothyroxine Sodium (Synthroid) 25 mcg PO QAMAC [facility] Loperamide HCl (Imodium) 2 mg PO PRN PRN PRN Reason: Diarrhea Last Admin: 01/05/20 15:18 Dose: 2 mg Documented by: Melatonin (Melatonin 3mg Tablet) 3 mg PO HSP PRN PRN Reason: Insomnia Metoprolol Tartrate (Lopressor) 5 mg IV Q5M PRN PRN Reason: Heart Rate > 140 bpm Ondansetron HCl (Zofran Odt) 4 mg SL Q4-6HP PRN; Protocol PRN Reason: Nausea And Vomiting Ondansetron HCl (Zofran) 4 mg IV Q4-6HP PRN; Protocol PRN Reason: Nausea And Vomiting Potassium Chloride (Klor-Con) 40 meq PO DAILYP PRN PRN Reason: K+ < 3.5 Sodium Chloride (Saline Flush) 10 ml IV Q8 [facility] Last Admin: 01/06/20 05:46 Dose: 10 ml Documented by: A/P Narrative A/P Narrative: A: *Acute hypoxic respiratory failure: 2/2 PNA -now on room air today *b/l PNA (Aspiration vs CAP) & Bronchiectasis: *HypoMag: resolved *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 Suarez -platelets baseline around 30. *h/o Seizure disorder: on Keppra *Hypothyroidism: *Depression: *Chronic UTI//UR/BPH: status post TURP 2018. *CKD III: baseline 1.3. *Generalized deconditioning: Plan: -Continue antibiotic coverage, pending cultures -ST eval/aspiration precaution -IS/Acapella -echo pending -PT OT nutrition support -ppx: SCD (no chemical while PLT<50k) DNR Time Spent With Patient Time: Total time spent is greater than 50% in coordination of care (as d ocumented) at patient's floor/unit and/or counseling patient: QUALITY VTE Deep Vein Thrombosis/Pulmonary Embolism Present on Admission: No
[2020-01-06] MEDS: LEVOTHYROXINE 25 MCG TABLET PO SCH (08:52)
[2020-01-06] MEDS ORDERED: LEVOFLOXACIN 750 MG/150 ML BAG IV SCH (09:00)
[2020-01-06] MEDS: levETIRAcetam 500 MG TABLET PO SCH ×2 (09:01→21:02)
[2020-01-06] MEDS: CALCIUM (OYSTER SHELL) 500 MG TABLET PO SCH (09:02)
[2020-01-06] MEDS: MULTIVIT,THER IRON,CA,FA & MIN 1 TABLET PO SCH (09:02)
--- NOTE | 2020-01-06 10:46 | Discharge Summary ---
Discharge Provider Provider Patient information: Note initiated : 01/06/20 at 10:45 am Service Date, if different from initiated Date: [] Patient: Mu Jennings 89 y/o M admitted on 01/04/20 for Weakness, fever. Chief Complaint: [] Date of admission: 01/04/20 15:04 Discharge date: 01/07/20 Primary care physician: Geovany Ivory M.D., F.A.A.F.P. Consults: 01/04/20 Consult to Physician [CONS] Stat Comment: Consulting Provider: Henry Gilmore Reason For Exam: Physician to Consult Discharge Meds Discharge Medications Home Medications levothyroxine 25 mcg tablet 25 mcg PO DAILY #90 tab 11/20/18 [Rx Confirmed 12/18 01/06 Last Taken 01/03/20 08:00] lift chair #1 ea 09/03/19 [Rx Confirmed 01/04/20 Last Taken Unknown] calcium carbonate [Calcium 500] 1,200 mg PO QDAY 12/25/19 [History Confirmed 01/04/20 Last Taken 01/03/20 08:00] levetiracetam [Keppra] 500 mg PO BID 12/25/19 [History Confirmed 01/04/20 Last Taken 01/03/20 21:00] loperamide 2 mg PO PRN PRN MDD 8 01/04/20 [History Confirmed 01/04/20 Last Taken 01/03/20 20:00] cefpodoxime 200 mg PO BID #4 tab 01/06/20 [Rx Last Taken Unknown] doxycycline hyclate 100 mg PO BID #4 tab 01/06/20 [Rx Last Taken Unknown] Lactobacillus acidophilus 2,000 mmu cells PO BID #20 cap 01/07/20 [Rx Last Taken Unknown] COURSE Hospital Course Hospital course: Interval history: Ms. Jennings is a 89-year-old with a known history of CLL/lymphoma/seizure disorder who lives in [place] along with her daughter. He was in his baseline state of health until 24 hours prior to presentation started feeling weak. He woke up this morning with fever, shortness of breath and became confused. He was brought into the ER for evaluation. Initial work-up was consistent with bilateral infiltrates co nsistent with pneumonia. ABG reveals PO2 36 with sats in mid 60s. Patient was started on antibiotic after cultures were drawn. Started on supplemental oxygen. Hospital service was consulted. At the time of evaluation patient is alert and respond to commands. He feels a lot cain. He denies sick contacts. He denies skin rash, joint pain, rash headache or photophobia. 01/04-patient doing better than previous day l. On 3 L oxygen. Feels a lot better. Continuing antibiotic coverage for bilateral lower lobe pneumonia. High risk patient in the setting of immunocompromise state with underlying lymphoma/leukemia. Rapid COVID-19 negative. Continue contact the question. Multiple BM consistent with chronic diarrhea. 01/05 No new complaints overnight events. Patient on room air. Has a chronic cough but no change. 01/06 Awaiting speech therapy evaluation then discharge home with family. 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 Suarez -platelets baseline around 30. *h/o Seizure disorder: on Keppra *Hypothyroidism: *Depression: *Chronic UTI//UR/BPH: status post TURP 2018. *CKD III: baseline 1.3. *Generalized deconditioning: Discharge diagnosis: Hypoxic respiratory failure acute, pneumonia question aspiration, bronchiec Secondary discharge diagnosis: CLL and pancytopenia seizure disorder with hypothyroidism depression chronic kidney disease generalized deconditioning Time Spent with Patient Time attestation: Total time spent providing and/or coordinating discharge services: Time spent: Greater than 30 minutes EXAM Constitutional Vitals: Temp Pulse Resp BP Pulse Ox 98.3 F 72 18 134/78 94 01/06/20 08:00 01/06/20 04:00 01/06/20 08:00 01/06/20 08:00 01/06/20 08:00 Discharge Data Data Completed and Pending Labs on day of discharge: Labs from last 24 hours 01/06/20 01/06/20 01/05/20 04:39 04:39 21:00 WBC 1.6 L RBC 2.88 L Hgb 8.6 L Hct 27.6 L MCV 95.8 MCH 29.9 MCHC 31.2 RDW 14.2 Plt Count 36 L* MPV 11.1 H Total Counted 100 Seg Neutrophils % 63 Band Neutrophils % 1 Lymphocytes % 33 Monocytes % (Manual) 2 Reactive Lymphocytes 1 Platelet Estimate Mk decr A RBC Morphology Normal Sodium 140 Potassium 3.8 Chloride 102 Carbon Dioxide 28 Anion Gap 10.0 BUN 18 Creatinine 1.3 H GFR Calculation 48 Glucose 96 Uric Acid 4.8 Calcium 8.3 L Phosphorus 4.0 Magnesium 2.2 Total Bilirubin 0.4 Direct Bilirubin < 0.2 GGT 14 AST 22 ALT 7 Alkaline Phosphatase 63 Lactate Dehydrogenase 189 Total Protein 6.1 Albumin 3.4 Globulin 2.7 Albumin/Globulin Ratio 1.3 Triglycerides 107 Urine Color Yellow Urine Appearance Clear Urine pH 5.0 Ur Specific [place] 1.020 Urine Protein Neg Urine Glucose (UA) Negative Urine Ketones Neg Urine Occult Blood 0.03 A Urine Nitrate Neg Urine Bilirubin Neg Urine Urobilinogen Neg Ur Leukocyte Esterase Neg Urine RBC < 1 Urine WBC 1 Ur Squamous Epith Cells 0 Ur Transition Epith Cell < 1 Urine Bacteria 0 Ur Culture Indicated? No Preliminary micro results at discharge 01/04/20 11:55 Blood Culture - Preliminary Blood 01/04/20 11:50 Blood Culture - Preliminary Blood Discharge Plan Patient/Caregiver Discharge Instructions Activity: increase activity as tolerated Diet: Regular Diet Instructions: COVID-19, Sepsis (GEN), Chronic Diarrhea (GEN), Community Acquired Pneumonia (GEN), Nutrition Tips for Relief of Diarrhea (GEN) Prescriptions: New cefpodoxime 200 mg tablet 200 mg PO BID Qty: 4 RF: 0 doxycycline hyclate 100 mg tablet 100 mg PO BID Qty: 4 RF: 0 Lactobacillus acidophilus Capsule 2,000 mmu cells PO BID Qty: 20 RF: 0 Continued levothyroxine 25 mcg tablet 25 mcg PO DAILY Qty: 90 RF: 3 (DME) lift chair Qty: 1 RF: 0 calcium carbonate [Calcium 500] 500 mg calcium (1,250 mg) Tablet 1,200 mg PO QDAY RF: 0 levetiracetam [Keppra] 500 mg tablet 500 mg PO BID RF: 0 loperamide 2 mg Tablet 2 mg PO PRN MDD 8 PRN (Reason: Diarrhea) RF: 0 Other Ambulatory Orders: ST Discharge Order (Routine) Location: None Selected Ordered By: Chad Islas Follow Up Plan Follow up with: Geovany Ivory MD, FAAFP [Primary Care Provider] - 01/30/20 2:30 pm (You are on the weight list for any cancelations, they will will call you in sooner if they have any. ) Patient Disposition: Home, Self-Care Prognosis: Undetermined Rehab Potential: Fair Overall status at discharge: patient is progressing back to baseline Discharge Orders: Discharge Order (Routine); Ordered 01/07/20 Ordered By: Chad Islas QUALITY VTE Deep Vein Thrombosis/Pulmonary Embolism Present on Admission: No
[2020-01-06] MEDS: LOPERAMIDE 2 MG CAPSULE PO PRN (10:59)
[2020-01-07] MEDS: PIPERACILLIN SODIUM/TAZOBACTAM 2.25 GM in DEXTROSE 5% IN WATER 50 ML IV SCH ×3 (05:45→11:32)
[2020-01-07] MEDS: 0.9 % SODIUM CHLORIDE 10 ML SYRINGE IV SCH (05:46)
[2020-01-07] MEDS: LEVOTHYROXINE 25 MCG TABLET PO SCH (07:12)
[2020-01-07] MEDS: CALCIUM (OYSTER SHELL) 500 MG TABLET PO SCH (07:48)
[2020-01-07] MEDS: levETIRAcetam 500 MG TABLET PO SCH (07:48)
[2020-01-07] MEDS: MULTIVIT,THER IRON,CA,FA & MIN 1 TABLET PO SCH (07:48)
[2020-01-07] MEDS: LOPERAMIDE 2 MG CAPSULE PO PRN (07:49)
[2020-01-07] MEDS ORDERED: HEPARIN SODIUM,PORCINE/PF 500 UNIT/5 ML SYRINGE IV ONE (11:25)
== END 2020-01-07 12:50 | disposition home or self-care (01) | DRG 177 ==
LOC: ED 11:10 → ICU 15:04
PROVIDERS: ADMIT Internal Medicine; ATTEND Internal Medicine